=== PATIENT | female | born 1940 | race Caucasian/White ===

== ENCOUNTER 2018-08-14 11:00 | Emergency (ER) | payer OTHER ==
[2018-08-14 11:22] VITALS: BP 153/55; PULSE 89; TEMP 98; BMI 21.6
--- NOTE | 2018-08-14 11:45 | PDOC ---
History of Present Illness - General Chief Complaint: Injury Stated Complaint: FALL Time Seen by Provider: 08/14/18 11:05 History Source: Patient (78 y/o female drove and walked in the ED with a history of loosing her balance while walking in the dark in her apartment, hit the head without loss of consciousness and right sided of the chest few nights ago) Exam Limitations: No Limitations - History of Present Illness Severity: moderate Modifying Factors: improves with: medication, rest Associated Symptoms: reports: denies symptoms, shortness of breath ( mild shortness of breath when attempted to take a deep breath). denies: nausea/ vomiting Past History - Travel Traveled outside of the country in the last 30 days: No Close contact w/someone who was outside of country & ill: No - Past Medical History Allergies/Adverse Reactions: Allergies Allergy/AdvReac Type Severity Reaction Status Date / Time oyster extract Allergy Mild Hives Verified 06/09/13 09:38 Penicillins Allergy Mild Verified 06/09/13 09:38 lisinopril Allergy Cough Unverified 02/04/14 13:58 shellfish derived Allergy Verified 06/09/13 09:39 pioglitazone AdvReac Severe falls Unverified 12/07/16 10:58 WINE Allergy Intermediate Rash Uncoded 06/09/13 09:38 oyster extract Allergy Mild Hives Uncoded 06/09/13 09:38 *RETIRED-04/09/12 lobster Allergy Unknown Uncoded 06/09/13 09:38 Home Medications: Ambulatory Orders Aspirin Coated [Ecotrin -] 81 mg PO DAILY 06/09/13 Cholecalciferol (Vitamin D3) [Vitamin D -] 400 unit PO DAILY tablet 04/21/14 Amlodipine Besylate 5 mg PO 1/2 tab daily 02/12/17 Anemia: No Asthma: No Cancer: Yes (BREAST, OVARIAN) Cardiac Disorders: Yes CVA: No COPD: No CHF: No Dementia: No Diabetes: Yes (15 yrs) GI Disorders: No Disorders: No HTN: Yes Hypercholesterolemia: Yes Liver Disease: No Seizures: No Thyroid Disease: Yes - Surgical History Abdominal Surgery: No Appendectomy: No Cardiac Surgery: No Cholecystectomy: No Lung Surgery: No Neurologic Surgery: No Orthopedic Surgery: No - Suicide/Smoking/Psychosocial Hx Smoking Status: No Smoking History: Never smoked Have you smoked in the past 12 months: No Number of Cigarettes Smoked Daily: 0 Information on smoking cessation initiated: No Hx Alcohol Use: No Drug/Substance Use Hx: No Substance Use Type: None Hx Substance Use Treatment: No Review of Systems - Review of Systems Able to Perform ROS?: Yes Is the patient limited Swedish proficient: Yes Constitutional: Yes: Weakness HEENTM: No: Symptoms Reported, See HPI, Eye Pain, Blurred Vision, Tearing, Recent change in vision, Double Vision, Cataracts, Ear Pain, Ocular Prothesis, Ear Discharge, Nose Pain, Nose Congestion, Tinnitus, Nose Bleeding, Hearing Loss , Throat Pain, Throat Swelling, Mouth Pain, Dental Problems, Difficulty Swallowing, Mouth Swelling, Other Respiratory: Yes: See HPI Cardiac (ROS): No: Symptoms Reported, See HPI, Chest Pain, Edema, Irregular Heart Rate, Lightheadedness, Palpitations, Syncope, Chest Tightness, Other ABD/GI: No: Symptoms Reported, See HPI, Abdominal Distended, Abd. Pain w/ defecation, Blood Streaked Bowels, Constipated, Diarrhea, Difficulty Swallowing , Nausea, Poor Appetite, Poor Fluid Intake, Rectal Bleeding, Vomiting, Indigestion, Abdominal cramping, Tarry Stools, Other Neurological: Yes: Headache (athe site of the back of the head) All Other Systems: Reviewed and Negative *Physical Exam - Vital Signs Last Vital Signs Temp Pulse Resp BP Pulse Ox 98 F 89 18 153/55 L 96 08/14/18 11:00 08/14/18 11:00 08/14/18 11:00 08/14/18 11:00 08/14/18 11:00 - Physical Exam General Appearance: Yes: Nourished, Appropriately Dressed, Thin. No: Apparent Distress HEENT: positive: SEGUNDO, Normal ENT Inspection, Normal Voice Neck: positive: Trachea midline, Supple. negative: Carotid bruit Respiratory/Chest: positive: Lungs Clear (Limited inspiratory efforts due to pain on the right side of the chest) Gastrointestinal/Abdominal: positive: Normal Bowel Sounds, Flat Musculoskeletal: positive: Normal Inspection Extremity: positive: Normal Capillary Refill, Normal Inspection, Normal Range of Motion Neurologic: positive: results engineer II-XII NML intact, Fully Oriented, Normal Mood/Affect Moderate Sedation - Procedure Monitoring Vital Signs: Procedure Monitoring Vital Signs Temperature 98 F 08/14/18 11:00 Pulse Rate 89 08/14/18 11:00 Respiratory Rate 18 08/14/18 11:00 Blood Pressure 153/55 L 08/14/18 11:00 O2 Sat by Pulse Oximetry (%) 96 08/14/18 11:00 *DC/Admit/Observation/Transfer Diagnosis at time of Disposition: Fracture of ribs, three, closed Qualifiers: Encounter type: initial encounter Laterality: right Qualified Code(s): S22.41XA - Multiple fractures of ribs, right side, initial encounter for closed fracture Head trauma Qualifiers: Encounter type: initial encounter Qualified Code(s): S09.90XA - Unspecified injury of head, initial encounter - Discharge Dispostion Disposition: HOME Condition at time of disposition: Stable Decision to Admit order: No - Referrals Referrals: Codey Bravo MD [Primary Care Provider] - - Patient Instructions Printed Discharge Instructions: DI for Rib Fracture, How to Prevent Falls, DI for Closed Head Injury Additional Instructions: Follow up with your doctor, Shelly CARBAJAL in 3-5 days See your echocardiography radiology technologist tomorrow as visit arranged by us Return to ER if any symptoms - Post Discharge Activity
== END 2018-08-14 13:50 | disposition home or self-care (01) ==
LOC: FER 11:00
DX: S22.41XA Multiple fractures of ribs, right side, initial encounter for closed fracture (principal); S09.90XA Unspecified injury of head, initial encounter; W01.10XA Fall on same level from slipping, tripping and stumbling with subsequent striking against unspecified object, initial encounter; Y93.89 Activity, other specified; Y92.009 Unspecified place in unspecified non-institutional (private) residence as the place of occurrence of the external cause; I10 Essential (primary) hypertension; E78.00 Pure hypercholesterolemia, unspecified; E11.9 Type 2 diabetes mellitus without complications; Z85.43 Personal history of malignant neoplasm of ovary; Z85.3 Personal history of malignant neoplasm of breast; Z88.0 Allergy status to penicillin; Z91.013 Allergy to seafood; Z88.8 Allergy status to other drugs, medicaments and biological substances
CPT/HCPCS: 70450-TC; 71046-TC-FY; 71101-TC-RT-FY; 99282-25

== ENCOUNTER 2018-11-24 16:56 | Inpatient (IN) | payer OTHER ==
[2018-11-24] MEDS ORDERED: ACETAMINOPHEN 325 MG TABLET (FP) ONE (17:03)
[2018-11-24] MEDS ORDERED: LORazepam 2 MG/ML SDV VIAL ONE ×2 (17:11→17:35)
--- NOTE | 2018-11-24 17:17 | PDOC ---
Attending Attestation - Resident Resident Name: Juan Sepulveda - ED Attending Attestation I have performed the following: I have examined & evaluated the patient, The case was reviewed & discussed with the resident, I agree w/resident's findings & plan, Exceptions are as noted
[2018-11-24] MEDS ORDERED: ACETAMINOPHEN 500 MG TABLET (FP) PO STA (17:26)
[2018-11-24] MEDS ORDERED: levETIRAcetam 500 MG/5 ML INJECTION VIAL IVPB ONE (17:26)
[2018-11-24 17:29] LABS: BASO % 1.6 % (0-2.0); EOS % 5.4 % (0-4.5); HEMATOCRIT 29.8 % (32.4-45.2); HEMOGLOBIN 9.6 GM/dL (10.7-15.3); LYMPH % 26.9 % (8-40); MCH 23.1 pg (25.7-33.7); MCHC 32.3 g/dl (32.0-36.0); MEAN CELL VOLUME 71.8 fl (80-96); MEAN PLT VOLUME 7.1 fl (7.5-11.1); MONO % 8.2 % (3.8-10.2); NEUT % 57.9 % (42.8-82.8); PLATELET COUNT 235 K/MM3 (134-434); RBC 4.15 M/mm3 (3.60-5.2); RDW 15.8 % (11.6-15.6); WHITE BLOOD COUNT 5.3 K/mm3 (4.0-10.0)
[2018-11-24 17:39] LABS: EPI CELLS 0.1 /HPF (0-5/HPF); PH,URINE 7.5 (5.0-8.0); URINE APPEARANCE CLEAR; URINE BACTERIA 2.5 /hpf (NEGATIVE); URINE BILIRUBIN NEGATIVE (NEGATIVE); URINE CASTS 1 /lpf (0-8); URINE COLOR YELLOW; URINE GLUCOSE (UA) 1+ (NEGATIVE); URINE KETONE NEGATIVE (NEGATIVE); URINE LEUK ESTERASE NEGATIVE (NEGATIVE); URINE NITRITE NEGATIVE (NEGATIVE); URINE PROTEIN 2+ (NEGATIVE); URINE RBC 2 /hpf (0-4); URINE UROBILINOGEN 0.2 mg/dL (0.2-1.0); URINE WBC 0 /hpf (0-5)
[2018-11-24] MEDS ORDERED: RAPID SEQUENCE INTUBATION KIT NR ONE (17:43)
[2018-11-24] MEDS ORDERED: PROPOFOL 1,000,000 MCG/100 ML VIAL ONE (17:50)
[2018-11-24 17:52] LABS: ANION GAP 12 MMOL/L (8-16); BLOOD UREA NITROGEN 13 mg/dL (7-18); CALCIUM 8.4 mg/dL (8.5-10.1); CHLORIDE 91 mmol/L (98-107); CO2 22 mmol/L (21-32); CREATININE 0.8 mg/dL (0.55-1.3); GLUCOSE,RANDOM 200 mg/dL (74-106); POTASSIUM 3.9 mmol/L (3.5-5.1); SODIUM 125 mmol/L (136-145)
[2018-11-24 17:53] LABS: ALBUMIN 3.4 g/dl (3.4-5.0); ALK PHOS 69 U/L (45-117); BILIRUBIN,TOTAL 0.2 mg/dL (0.2-1); SGOT/AST 17 U/L (15-37); SGPT/ALT 21 U/L (13-61); TOT PROT 6.4 g/dl (6.4-8.2)
[2018-11-24] MEDS ORDERED: ETOMIDATE 20 MG/10 ML AMPUL IVPUSH ONE (17:56)
[2018-11-24] MEDS ORDERED: SUCCINYLCHOLINE CHLORIDE 200 MG/10 ML VIAL IVPUSH ONE (17:56)
[2018-11-24 17:58] LABS: INR 0.97 (0.83-1.09); PROTHROMBIN TIME (PATIENT) 11.5 SEC (9.7-13.0)
[2018-11-24] MEDS: PROPOFOL 1,000,000 MCG/100 ML VIAL IVPB SCH ×2 (18:00→22:00)
[2018-11-24] MEDS ORDERED: ACETAMINOPHEN 500 MG TABLET (FP) PO ONE (18:02)
--- NOTE | 2018-11-24 18:11 | PDOC ---
History of Present Illness <Binta Son - Last Filed: 11/24/18 18:41> - History of Present Illness Initial Comments: 11/24/18 18:05 Ms. Jo is a 78 yo female w/ pmh of HTN, HLD, DM, hypothyroidism who presents s /p fall earlier today. Patient reports she "might have" tripped while visiting in [place]. Patient fell and hit wheelchair with head. Currently complaining of pain at head impact site only. The patient denies chest pain, shortness of breath, headache and dizziness. Denies fever, chills, nausea, vomit, diarrhea and constipation. Denies dysuria, frequency, urgency and hematuria. <Juan Sepulveda - Last Filed: 11/24/18 20:40> - General Chief Complaint: Injury Stated Complaint: Injury Time Seen by Provider: 11/24/18 17:17 Past History <Binta Son - Last Filed: 11/24/18 18:41> - Past Medical History Anemia: No Asthma: No Cancer: Yes (BREAST, OVARIAN) Cardiac Disorders: Yes CVA: No COPD: No CHF: No Dementia: No Diabetes: Yes (15 yrs) GI Disorders: No Disorders: No HTN: Yes Hypercholesterolemia: Yes Liver Disease: No Seizures: No Thyroid Disease: Yes - Surgical History Abdominal Surgery: No Appendectomy: No Cardiac Surgery: No Cholecystectomy: No Lung Surgery: No Neurologic Surgery: No Orthopedic Surgery: No - Immunization History Immunization Up to Date: Yes - Suicide/Smoking/Psychosocial Hx Smoking Status: No Smoking History: Never smoked Have you smoked in the past 12 months: No Number of Cigarettes Smoked Daily: 0 Hx Alcohol Use: No Drug/Substance Use Hx: No Substance Use Type: None Hx Substance Use Treatment: No <Juan Sepulveda - Last Filed: 11/24/18 20:40> - Past Medical History Allergies/Adverse Reactions: Allergies Allergy/AdvReac Type Severity Reaction Status Date / Time oyster extract Allergy Mild Hives Verified 11/24/18 17:01 Penicillins Allergy Mild Verified 11/24/18 17:01 lisinopril Allergy Cough Verified 11/24/18 18:24 shellfish derived Allergy Verified 11/24/18 17:01 pioglitazone AdvReac Severe falls Verified 11/24/18 18:24 WINE Allergy Intermediate Rash Uncoded 11/24/18 17:01 oyster extract Allergy Mild Hives Uncoded 11/24/18 17:01 *RETIRED-04/09/12 lobster Allergy Unknown Uncoded 11/24/18 17:01 Home Medications: Ambulatory Orders Aspirin Coated [Ecotrin -] 81 mg PO DAILY 06/09/13 Cholecalciferol (Vitamin D3) [Vitamin D -] 400 unit PO DAILY tablet 04/21/14 Amlodipine Besylate 5 mg PO 1/2 tab daily 02/12/17 Review of Systems - Review of Systems Comments:: 11/24/18 18:10 GENERAL/CONSTITUTIONAL: No fever or chills. No weakness. HEAD, EYES, EARS, NOSE AND THROAT: +Pain to head as described. No change in vision. No ear pain or discharge. No sore throat. CARDIOVASCULAR: No chest pain or shortness of breath RESPIRATORY: No cough, wheezing, or hemoptysis. GASTROINTESTINAL: No nausea, vomiting, diarrhea or constipation. GENITOURINARY: No dysuria, frequency, or change in urination. MUSCULOSKELETAL: No joint or muscle swelling or pain. No neck or back pain. SKIN: No rash NEUROLOGIC: No headache, vertigo, loss of consciousness, or change in strength/ sensation. ENDOCRINE: No increased thirst. No abnormal weight change HEMATOLOGIC/LYMPHATIC: No anemia, easy bleeding, or history of blood clots. ALLERGIC/IMMUNOLOGIC: No hives or skin allergy. <Juan Sepulveda - Last Filed: 11/24/18 20:40> *Physical Exam - Vital Signs Last Vital Signs Temp Pulse Resp BP Pulse Ox 98.8 F 81 16 173/146 H 100 11/24/18 16:59 11/24/18 16:59 11/24/18 18:37 11/24/18 16:59 11/24/18 18:37 <Binta Son - Last Filed: 11/24/18 18:41> - Vital Signs Last Vital Signs Temp Pulse Resp BP Pulse Ox 98.8 F 81 18 173/146 H 100 11/24/18 16:59 11/24/18 16:59 11/24/18 16:59 11/24/18 16:59 11/24/18 16:59 - Physical Exam Comments: 11/24/18 18:10 GENERAL: Awake, alert, and fully oriented, in no acute distress HEAD: +Approx. 2 cm laceration actively pulsing blood at L forehead hairline. Normocephalic EYES: PERRLA, EOMI, sclera anicteric, conjunctiva clear ENT: Auricles normal inspection, hearing grossly normal, nares patent, oropharynx clear without exudates. Moist mucosa NECK: Normal ROM, supple, no lymphadenopathy, JVD, or masses LUNGS: No distress, speaks full sentences, clear to auscultation bilaterally HEART: Regular rate and rhythm, normal S1 and S2, no murmurs, rubs or gallops, peripheral pulses normal and equal bilaterally. ABDOMEN: Soft, nontender, normoactive bowel sounds. No guarding, no rebound. No masses EXTREMITIES: Normal inspection, Normal range of motion, no edema. No clubbing or cyanosis. NEUROLOGICAL: Cranial nerves II through XII grossly intact. Normal speech, normal gait, no focal sensorimotor deficits SKIN: Warm, Dry, normal turgor, no rashes or lesions noted. 11/24/18 18:48 <Juan Sepulveda - Last Filed: 11/24/18 20:40> Procedures - Intubation Time of Intubation: 17:45 Intubation Method: orotracheal Blade used: Mac Tube Size (Fr): 7.5 Medications: Etomidate, Rocuronium Tube position @ lip (cm): 22 Tube position confirmed by: Direct visualization, CO2 detector, Breath sounds Breath Sounds after Intubation: equal Intubation Complications: no complications <Binta Son - Last Filed: 11/24/18 18:41> ED Treatment Course - LABORATORY CBC & Chemistry Diagram: 11/24/18 17:18 11/24/18 17:18 - ADDITIONAL ORDERS Additional order review: Laboratory Results 11/24/18 11/24/18 11/24/18 17:18 17:18 17:18 PT with INR 11.50 INR 0.97 Sodium 125 L Potassium 3.9 Chloride 91 L Carbon Dioxide 22 Anion Gap 12 BUN 13 Creatinine 0.8 Creat Clearance w eGFR 69.37 POC Glucometer Random Glucose 200 H Calcium 8.4 L Total Bilirubin 0.2 AST 17 ALT 21 Alkaline Phosphatase 69 Creatine Kinase 199 H Creatine Kinase Index 1.6 CK-MB (CK-2) 3.3 Troponin I < 0.02 Total Protein 6.4 Albumin 3.4 Urine Color Yellow Urine Appearance Clear Urine pH 7.5 Ur Specific Thrall 1.009 L Urine Protein 2+ H Urine Glucose (UA) 1+ H Urine Ketones Negative Urine Blood Trace Urine Nitrite Negative Urine Bilirubin Negative Urine Urobilinogen 0.2 Ur Leukocyte Esterase Negative Urine WBC (Auto) 0 Urine RBC (Auto) 2 Urine Casts (Auto) 1 U Epithel Cells (Auto) 0.1 Urine Bacteria (Auto) 2.5 11/24/18 17:13 PT with INR INR Sodium Potassium Chloride Carbon Dioxide Anion Gap BUN Creatinine Creat Clearance w eGFR POC Glucometer 192 Random Glucose Calcium Total Bilirubin AST ALT Alkaline Phosphatase Creatine Kinase Creatine Kinase Index CK-MB (CK-2) Troponin I Total Protein Albumin Urine Color Urine Appearance Urine pH Ur Specific Thrall Urine Protein Urine Glucose (UA) Urine Ketones Urine Blood Urine Nitrite Urine Bilirubin Urine Urobilinogen Ur Leukocyte Esterase Urine WBC (Auto) Urine RBC (Auto) Urine Casts (Auto) U Epithel Cells (Auto) Urine Bacteria (Auto) 11/24/18 11/24/18 17:18 17:13 RBC 4.15 MCV 71.8 L MCHC 32.3 RDW 15.8 H MPV 7.1 L Neutrophils % 57.9 Lymphocytes % 26.9 Monocytes % 8.2 Eosinophils % 5.4 H Basophils % 1.6 POC Glucometer 192 - Medications Given in the ED: ED Medications Discontinued Medications Generic Name Dose Route Start Last Admin Trade Name Darshanq PRN Reason Stop Dose Admin Acetaminophen 975 mg 11/24/18 17:26 11/24/18 17:20 Tylenol - PO 11/24/18 17:27 975 mg ONCE STA Administration Acetaminophen 975 mg 11/24/18 18:02 11/24/18 18:25 Tylenol - PO 11/24/18 18:03 Not Given ONCE ONE Diphtheria/Tetanus/Acell Pertussis 0.5 ml 11/24/18 18:12 11/24/18 18:34 Boostrix - IM 11/24/18 18:13 0.5 ml .ONCE ONE Administration Etomidate 20 mg 11/24/18 17:56 11/24/18 17:44 Amidate - IVPUSH 11/24/18 17:57 20 mg ONCE ONE Administration Levetiracetam 1,000 mg 11/24/18 17:26 11/24/18 18:36 Keppra Injection - IVPB 11/24/18 17:27 Not Given ONCE ONE Lorazepam 2 mg 11/24/18 17:26 11/24/18 17:26 Ativan Injection - IVPUSH 11/24/18 17:27 2 mg ONCE ONE Administration Lorazepam 2 mg 11/24/18 17:56 11/24/18 18:25 Ativan Injection - IVPUSH 11/24/18 17:57 Not Given ONCE ONE Lorazepam 2 mg 11/24/18 18:33 11/24/18 18:36 Ativan Injection - IVPUSH 11/24/18 18:34 2 mg ONCE ONE Administration Succinylcholine Chloride 100 mg 11/24/18 17:56 11/24/18 17:44 Quelicin - IVPUSH 11/24/18 17:57 100 mg ONCE ONE Administration <Binta Son - Last Filed: 11/24/18 18:41> - LABORATORY CBC & Chemistry Diagram: 11/24/18 17:18 11/24/18 17:18 - ADDITIONAL ORDERS Additional order review: Laboratory Results 11/24/18 11/24/18 11/24/18 17:18 17:18 17:18 PT with INR 11.50 INR 0.97 Sodium 125 L Potassium 3.9 Chloride 91 L Carbon Dioxide 22 Anion Gap 12 BUN 13 Creatinine 0.8 Creat Clearance w eGFR 69.37 POC Glucometer Random Glucose 200 H Calcium 8.4 L Total Bilirubin 0.2 AST 17 ALT 21 Alkaline Phosphatase 69 Creatine Kinase 199 H Troponin I < 0.02 Total Protein 6.4 Albumin 3.4 Urine Color Yellow Urine Appearance Clear Urine pH 7.5 Ur Specific Thrall 1.009 L Urine Protein 2+ H Urine Glucose (UA) 1+ H Urine Ketones Negative Urine Blood Trace Urine Nitrite Negative Urine Bilirubin Negative Urine Urobilinogen 0.2 Ur Leukocyte Esterase Negative Urine WBC (Auto) 0 Urine RBC (Auto) 2 Urine Casts (Auto) 1 U Epithel Cells (Auto) 0.1 Urine Bacteria (Auto) 2.5 11/24/18 17:13 PT with INR INR Sodium Potassium Chloride Carbon Dioxide Anion Gap BUN Creatinine Creat Clearance w eGFR POC Glucometer 192 Random Glucose Calcium Total Bilirubin AST ALT Alkaline Phosphatase Creatine Kinase Troponin I Total Protein Albumin Urine Color Urine Appearance Urine pH Ur Specific Thrall Urine Protein Urine Glucose (UA) Urine Ketones Urine Blood Urine Nitrite Urine Bilirubin Urine Urobilinogen Ur Leukocyte Esterase Urine WBC (Auto) Urine RBC (Auto) Urine Casts (Auto) U Epithel Cells (Auto) Urine Bacteria (Auto) 11/24/18 11/24/18 17:18 17:13 RBC 4.15 MCV 71.8 L MCHC 32.3 RDW 15.8 H MPV 7.1 L Neutrophils % 57.9 Lymphocytes % 26.9 Monocytes % 8.2 Eosinophils % 5.4 H Basophils % 1.6 POC Glucometer 192 <Juan Sepulveda - Last Filed: 11/24/18 20:40> Medical Decision Making - Medical Decision Making 11/24/18 18:11 Ms. Jo is a 78 yo female w/ pmh as described who presents s/p fall. During secondary exam for blood control of lac, patient noted to start seizing w/ eye deviation to L and rhythmic mouth movements. Patient given 2mg ativan. Patient taken for head / c-spine immediately. 11/24/18 18:48 Patient trauma workup as below significant for anemia as well as hyponatremia. Head / C-spine CT's negative for acute process. Patient noted to have additional self limited seizure in CT scanner. Additional 2mg ativan given for sedation. Patient intubated prophylactically and given propofol for sedation. NS added for sodium repletion. Tetanus booster given. 11/24/18 19:06 Patient discussed with Neurology who recommended close monitoring for time being with addition of keppra 500 BID if third seizure. Breathing trial ok later tonight if patient protecting airway and staff comfortable with progress. Patient will be admitted to ICU. 11/24/18 19:41 Patient noted to have disconnected self from vent. Patient placed on NC at 3L for breathing trial and noted to desaturate to 93%. Patient sedation increased with push of propofol and patient reconnected to vent. Patient failed breathing trial. Patient admitted to ICU for further care. 11/24/18 20:39 Patient required additional 5mg versed for additional sedation. Laboratory Results - last 24 hr 11/24/18 11/24/18 11/24/18 17:13 17:18 17:18 WBC 5.3 RBC 4.15 Hgb 9.6 L Hct 29.8 L MCV 71.8 L MCH 23.1 L MCHC 32.3 RDW 15.8 H Plt Count 235 MPV 7.1 L Absolute Neuts (auto) 3.1 Neutrophils % 57.9 Lymphocytes % 26.9 Monocytes % 8.2 Eosinophils % 5.4 H Basophils % 1.6 Nucleated RBC % 0 PT with INR 11.50 INR 0.97 Sodium Potassium Chloride Carbon Dioxide Anion Gap BUN Creatinine Creat Clearance w eGFR POC Glucometer 192 Random Glucose Calcium Total Bilirubin AST ALT Alkaline Phosphatase Creatine Kinase Creatine Kinase Index CK-MB (CK-2) Troponin I Total Protein Albumin Urine Color Urine Appearance Urine pH Ur Specific Thrall Urine Protein Urine Glucose (UA) Urine Ketones Urine Blood Urine Nitrite Urine Bilirubin Urine Urobilinogen Ur Leukocyte Esterase Urine WBC (Auto) Urine RBC (Auto) Urine Casts (Auto) U Epithel Cells (Auto) Urine Bacteria (Auto) 11/24/18 11/24/18 17:18 17:18 WBC RBC Hgb Hct MCV MCH MCHC RDW Plt Count MPV Absolute Neuts (auto) Neutrophils % Lymphocytes % Monocytes % Eosinophils % Basophils % Nucleated RBC % PT with INR INR Sodium 125 L Potassium 3.9 Chloride 91 L Carbon Dioxide 22 Anion Gap 12 BUN 13 Creatinine 0.8 Creat Clearance w eGFR 69.37 POC Glucometer Random Glucose 200 H Calcium 8.4 L Total Bilirubin 0.2 AST 17 ALT 21 Alkaline Phosphatase 69 Creatine Kinase 199 H Creatine Kinase Index 1.6 CK-MB (CK-2) 3.3 Troponin I < 0.02 Total Protein 6.4 Albumin 3.4 Urine Color Yellow Urine Appearance Clear Urine pH 7.5 Ur Specific Thrall 1.009 L Urine Protein 2+ H Urine Glucose (UA) 1+ H Urine Ketones Negative Urine Blood Trace Urine Nitrite Negative Urine Bilirubin Negative Urine Urobilinogen 0.2 Ur Leukocyte Esterase Negative Urine WBC (Auto) 0 Urine RBC (Auto) 2 Urine Casts (Auto) 1 U Epithel Cells (Auto) 0.1 Urine Bacteria (Auto) 2.5 <Juan Sepulveda - Last Filed: 11/24/18 20:40> *DC/Admit/Observation/Transfer <Binta Son - Last Filed: 11/24/18 18:41> - Discharge Dispostion Decision to Admit order: Yes <Juan Sepulveda - Last Filed: 11/24/18 20:40> Diagnosis at time of Disposition: Seizure Head trauma Qualifiers: Encounter type: initial encounter Qualified Code(s): S09.90XA - Unspecified injury of head, initial encounter
[2018-11-24] MEDS ORDERED: DIPHTH,PERTUSS(ACELL),TET 0.5 ML DISP.SYRIN IM ONE ×2 (18:12→18:27)
[2018-11-24] MEDS ORDERED: SODIUM CHLORIDE 1,000 ML IV STA (18:22)
[2018-11-24] MEDS ORDERED: ASPIRIN 81 MG CHEWABLE TABLETS ONE (18:39)
[2018-11-24] MEDS ORDERED: LOSARTAN POTASSIUM 50 MG TABLET (FP) ONE (18:39)
[2018-11-24] MEDS ORDERED: PROPOFOL 200 MG/20 ML VIAL IVPUSH ONE ×2 (19:05→19:30)
--- NOTE | 2018-11-24 20:14 | PN ---
Teaching Attending Note Name of Resident: Josephine Lawrence ATTENDING PHYSICIAN STATEMENT I saw and evaluated the patient. I reviewed the resident's note and discussed the case with the resident. I agree with the resident's findings and plan as documented. SUBJECTIVE: Seen and examined; please see resident note for further historical information. Briefly, she presents with a fall and seizure. She had gone [place] when she sustained what we are told is a mechanical fall and ended up hitting her head. She was noted to seize when having sutures put in and she improved after ativan. She seized in CT scan again. We are told she had R-sided gaze deviation but no tonic-clonic. She was never post ictal per the ER. She was intubated in the ER for airway protection with etomodate and succinylcholine. ER spoke to neurology; recommendations noted. ER events noted. She will be brought to the ICU for further treatment and monitoring. 10 sys ROS couldn't be reliably obtained PMH (HTN, HLD, DM, Hypothyroidism, falls with rib fx), PSH, FH, SH reviewed Home Medications Medication Instructions Recorded Aspirin Coated [Ecotrin -] 81 mg PO DAILY 06/09/13 Cholecalciferol (Vitamin D3) 400 unit PO DAILY tablet 04/21/14 [Vitamin D -] Amlodipine Besylate 5 mg PO 1/2 tab daily 02/12/17 OBJECTIVE: VS, labs, imaging reviewed NAD, RASS 3 sedated on vent, NC AT EOMI PERRLA RRR s1/2 no mgr Lungs with vent associated breath sounds, w/ sym exp Withdrawals to pain, reflexes +2 throughout Not agitated, doesn't appear to be in pain Imaging reviewed; final reports pending ASSESSMENT AND PLAN: Patient presents with fall with facial trauma found to seize x2 in the ER; neurology has been consulted. She was intubated for airway protection and will be brought to the ICU. 1) Fall with facial trauma -Sutured in the ER; wound care instrtuctions to be given on DC -Couldn't confirm with patient but I am told the fall wasn't syncopal. -Followup wound exam 2) Seizures -Keppra per neuro instruction; appreciate recs. PRN abortive tx. Monitor if she seizes again -Neuro checks and seizure precautions -Further diagnostics per consulting service. 3) S/P Intubation for airway protection -Spontaneous breathing trial in AM per pulmonary medicine; on propofol for sedation. RASS 3. NPO and IVF (low rate given low BMI, unknown CV status) 4) Hx DM -Reconcile home med list and SSI while inpatient 5) Hx HLD -Resume home meds when clinically appropriate 6) Hx HTN -Resume home meds when clinically appropriate 7) Hx Hypothyroidism -Reconcile and continue home medication 8) Microcytic Anemia -Followup iron studies 9) Hyponatremia -Chronic; will check urine and serum osm and urine Na FENA -LR@100 -PRN replete -NPO -Bedrest Full Code
--- NOTE | 2018-11-24 20:30 | CONSULT ---
Consultation: REQUESTING PROVIDER: CONSULT REQUEST: We have been asked to medically evaluate this patient for seizure/airway protection. HISTORY OF PRESENT ILLNESS: This is a 78 year old female with who [facility] . She sustained a laceration to her head which prompted her ER visit. During laceration repair in ED, she had a witnessed seizure by the ER resident. Eye deviated to the left with mouth twitching. She was given ativan and taken to CT, in CT she had another seizure. Patient was then intubated for airway protection. She was given propofol for sedation. During initial evaluation, patient was awake, staring off, not making eye contact, with both arms in the air, moving in bed. She then disconnected the ET tube from ventilator. During that time patient was suctioned for extubation, although she started to desaturate and remained aloof and confused. Patient kept sedated and intubated. PMH: as per EMR HTN, hypothyroid, DMII, hx of breast and ovarian CA REVIEW OF SYSTEMS: N/A PHYSICAL EXAMINATION Vital Signs - 24 hr 11/24/18 11/24/18 11/24/18 16:59 17:15 17:50 Temperature 98.8 F Pulse Rate 81 71 Pulse Rate [ 76 Apical] Respiratory 18 16 16 Rate Blood Pressure 173/146 H Blood Pressure 142/76 [Right Arm] O2 Sat by Pulse 100 100 100 Oximetry (%) 11/24/18 11/24/18 18:10 18:37 Temperature Pulse Rate Pulse Rate [ 68 Apical] Respiratory 16 16 Rate Blood Pressure Blood Pressure 139/82 [Right Arm] O2 Sat by Pulse 100 100 Oximetry (%) GENERAL: initial eyes opened, not making eye contact, flaring arms and trying to get out of bed, looked very confused; she then was given more sedation after ET reconnected. sating 90s on 50% FiO2 HEAD: scalp frontal laceration with sutures, with dried blood, no active bleeding, swelling EYES: pupils normal; reactive; EOMS, not following THROAT: ET tube in place multiple secretions LUNGS: anterior scattered rhonchi; posterior no crackles or wheeze HEART: Regular rate and rhythm, normal S1 and S2 without murmur, rub or gallop. ABDOMEN: Soft, nontender, not distended, normoactive bowel sounds, no guarding, no rebound, no masses. No hepatomegaly or splenomegaly. UPPER EXTREMITIES: 2+ pulses, warm, well-perfused. No cyanosis. No clubbing. Cap refill <2 seconds. No peripheral edema. LOWER EXTREMITIES: 2+ pulses, warm, well-perfused. No calf tenderness. No peripheral edema. NEUROLOGICAL: sedated SKIN: Warm, dry, normal turgor, no rashes or lesions noted. Laboratory Results - last 24 hr 11/24/18 11/24/18 11/24/18 17:13 17:18 17:18 WBC 5.3 RBC 4.15 Hgb 9.6 L Hct 29.8 L MCV 71.8 L MCH 23.1 L MCHC 32.3 RDW 15.8 H Plt Count 235 MPV 7.1 L Absolute Neuts (auto) 3.1 Neutrophils % 57.9 Lymphocytes % 26.9 Monocytes % 8.2 Eosinophils % 5.4 H Basophils % 1.6 Nucleated RBC % 0 PT with INR 11.50 INR 0.97 Sodium Potassium Chloride Carbon Dioxide Anion Gap BUN Creatinine Creat Clearance w eGFR POC Glucometer 192 Random Glucose Calcium Total Bilirubin AST ALT Alkaline Phosphatase Creatine Kinase Creatine Kinase Index CK-MB (CK-2) Troponin I Total Protein Albumin Urine Color Urine Appearance Urine pH Ur Specific [place] Urine Protein Urine Glucose (UA) Urine Ketones Urine Blood Urine Nitrite Urine Bilirubin Urine Urobilinogen Ur Leukocyte Esterase Urine WBC (Auto) Urine RBC (Auto) Urine Casts (Auto) U Epithel Cells (Auto) Urine Bacteria (Auto) Blood Type Antibody Screen 11/24/18 11/24/18 11/24/18 17:18 17:18 17:18 WBC RBC Hgb Hct MCV MCH MCHC RDW Plt Count MPV Absolute Neuts (auto) Neutrophils % Lymphocytes % Monocytes % Eosinophils % Basophils % Nucleated RBC % PT with INR INR Sodium 125 L Potassium 3.9 Chloride 91 L Carbon Dioxide 22 Anion Gap 12 BUN 13 Creatinine 0.8 Creat Clearance w eGFR 69.37 POC Glucometer Random Glucose 200 H Calcium 8.4 L Total Bilirubin 0.2 AST 17 ALT 21 Alkaline Phosphatase 69 Creatine Kinase 199 H Creatine Kinase Index 1.6 CK-MB (CK-2) 3.3 Troponin I < 0.02 Total Protein 6.4 Albumin 3.4 Urine Color Yellow Urine Appearance Clear Urine pH 7.5 Ur Specific [place] 1.009 L Urine Protein 2+ H Urine Glucose (UA) 1+ H Urine Ketones Negative Urine Blood Trace Urine Nitrite Negative Urine Bilirubin Negative Urine Urobilinogen 0.2 Ur Leukocyte Esterase Negative Urine WBC (Auto) 0 Urine RBC (Auto) 2 Urine Casts (Auto) 1 U Epithel Cells (Auto) 0.1 Urine Bacteria (Auto) 2.5 Blood Type O POSITIVE Antibody Screen Negative Active Medications Generic Name Dose Route Start Last Admin Trade Name Anette PRN Reason Stop Dose Admin Chlorhexidine Gluconate 1 applic 11/24/18 22:00 Hibiclens For Decolonization - TP HS SRINATH Propofol 1,000,000 mcg in 100 mls @ 1.361 mls/hr 11/24/18 18:00 11/24/18 19: 13 Diprivan - IVPB 8 mcg/kg/min TITR SRINATH 2.177 mls/hr Titration Protocol 5 MCG/KG/MIN Insulin Aspart 1 vial 11/24/18 20:15 Novolog Vial Sliding Scale - SQ Q4H SRINATH Protocol Mupirocin 1 applic 11/24/18 22:00 Bactroban Ointment (For Decolonization) - NS 11/29/18 21:59 BID SRINATH Pantoprazole Sodium 20 mg 11/25/18 10:00 Protonix Iv IVPUSH DAILY [facility] ASSESSMENT/PLAN: This is a 78 year old female who presents after fall with head laceration, witnessed seizure in ER with hyponatremia. 1. Seizure 2. Fall with head laceration 3. Hyponatremia 4. DMII with hyperglycemia 5. hx hypothyroid 6. hx HTN meds unknown 7. microcytic anemia 7. Hx breast and ovarian ca treatment unknown 1. Witnessed seizure possibly secondary to head trauma vs hyponatremia/ metabolic derangements ; s/p ativan; keppra not given as per neurology recs. Will load if has another seizure. Intubated and seated, failure to extubate due to desaturation and confusion. Head CT. EEG. 2. Fall: CT head/spine/xrays pending. L forehead laceration sutured. check CK level. 3. Hyponatremia. Assess volume status. Given 1L NS in ER. BMP q2-3hrs. Adjust IVF accordingly. corrected NA for glucose 126.6. Will order serum osmo, urine studies , urine na, tsh, am cortisol. 4. DMII, start insulin SS, [id number]. hemoglobin A1C. 5. Hx hypothyroid, check tsh, unknown if patient taking thyroid medication. 6. hypertensive in ER, will cont to monitor, patient now started on propofol. 7. microcytic anemia; iron studies, stool for occult blood, b12, folate VTE ppl : [facility] GI ppl; protonix if intubated >48hrs Full Code Dispo: We will continue to follow the patient. Thank you for this consultative opportunity. Visit type - Emergency Visit Emergency Visit: Yes ED Registration Date: 11/24/18 Care time: The patient presented to the Emergency Department on the above date and was hospitalized for further evaluation of their emergent condition. - New Patient This patient is new to me today: Yes Date on this admission: 11/24/18 - Critical Care Critical Care patient: Yes Total Critical Care Time (in minutes): 35 Critical Care Statement: The care of this patient involved high complexity decision making to prevent further life threatening deterioration of the patient 's condition and/or to evaluate & treat vital organ system(s) failure or risk of failure.
[2018-11-24] MEDS ORDERED: MIDAZOLAM HCL 2 MG/2 ML SINGLE DOSE VIAL ONE (20:33)
--- NOTE | 2018-11-24 20:33 | HP ---
CHIEF COMPLAINT: head injury, seizure PCP: Dr. Bravo HISTORY OF PRESENT ILLNESS: 78 y/o F with PMH HTN, HLD, DM, hypothyroid, hx 3 R sided rib fx 2018 s/p fall, hx breast and ovarian CA, who presents to the ED s/p mechanical fall this afternoon. All hx taken from chart and from ED providers, as pt intubated and sedated upon my examination. As per staff, this afternoon, the pt suffered a mechanical fall, tripping when visiting her in a NH. She subsequently suffered a 2cm laceration to her L forehead. Pt was brought to the ED for further evaluation. She did not have LOC, and was conversing with staff upon arrival. While in the ED, while her head laceration was being sutured, she had a two- minute seizure where she had R eye gaze deviation. Did not have tonic-clonic movements or post-ictal confusion. She later had another seizure of the same type when receiving a CTH lasting for 1 minute. During both seizure episodes, pt was given ativan 2mg IVP (x2 total). She was intubated and sedated for "airway protection" as per ED staff. At one point, she attempted to disconnect herself from the vent, but desat to low 90's so it was reconnected. ROS unable to obtain d/t pt current sedated status. vent settings: on a/c. tv 450/rate 16/%02 50/ peep5 note: keppra 1000mg IVPB was NOT given in ED. d/w nursing and ED attending ER course was notable for: (1) CTH (-), C-spine (-) (2) PO tylenol (3) tdap (4) suturing of L head laceration (5) intubation, vented, sedated. on propofol Recent Travel: unable to obtain see above PAST MEDICAL HISTORY: as above PAST SURGICAL HISTORY: unable to obtain see above (vented, sedated) Social History: as above Smoking: Alcohol: Drugs: Family History: as above Allergies oyster extract Allergy (Mild, Verified 11/24/18 17:01) Hives Penicillins Allergy (Mild, Verified 11/24/18 17:01) DON'T KNOW REACTION lisinopril Allergy (Verified 11/24/18 18:24) Cough shellfish derived Allergy (Verified 11/24/18 17:01) pioglitazone Adverse Reaction (Severe, Verified 11/24/18 18:24) falls WINE Allergy (Intermediate, Uncoded 11/24/18 17:01) Rash oyster extract *RETIRED-04/09/12 Allergy (Mild, Uncoded 11/24/18 17:01) Hives lobster Allergy (Unknown, Uncoded 11/24/18 17:01) HOME MEDICATIONS: Home Medications Medication Instructions Recorded Aspirin Coated [Ecotrin -] 81 mg PO DAILY 06/09/13 Cholecalciferol (Vitamin D3) 400 unit PO DAILY tablet 04/21/14 [Vitamin D -] Amlodipine Besylate 5 mg PO 1/2 tab daily 02/12/17 meds need to be verified with pharmacy and with pt /family pharmacy is closed currently. REVIEW OF SYSTEMS CONSTITUTIONAL: Absent: fever, chills, diaphoresis, generalized weakness, malaise, loss of appetite, weight change HEENT: Absent: rhinorrhea, nasal congestion, throat pain, throat swelling, difficulty swallowing, mouth swelling, ear pain, eye pain, visual changes CARDIOVASCULAR: Absent: chest pain, syncope, palpitations, irregular heart rate, lightheadedness , peripheral edema RESPIRATORY: Absent: cough, shortness of breath, dyspnea with exertion, orthopnea, wheezing, stridor, hemoptysis GASTROINTESTINAL: Absent: abdominal pain, abdominal distension, nausea, vomiting, diarrhea, constipation, melena, hematochezia GENITOURINARY: Absent: dysuria, frequency, urgency, hesitancy, hematuria, flank pain, genital pain MUSCULOSKELETAL: Absent: myalgia, arthralgia, joint swelling, back pain, neck pain SKIN: Absent: rash, itching, pallor HEMATOLOGIC/IMMUNOLOGIC: Absent: easy bleeding, easy bruising, lymphadenopathy, frequent infections ENDOCRINE: Absent: unexplained weight gain, unexplained weight loss, heat intolerance, cold intolerance NEUROLOGIC: +seizure Absent: headache, focal weakness or paresthesias, dizziness, unsteady gait, seizure, mental status changes, bladder or bowel incontinence PSYCHIATRIC: Absent: anxiety, depression, suicidal or homicidal ideation, hallucinations. PHYSICAL EXAMINATION Vital Signs - 24 hr 11/24/18 16:59 Temperature 98.8 F Pulse Rate 81 Pulse Rate [ Apical] Respiratory 18 Rate Blood Pressure 173/146 H Blood Pressure [Right Arm] O2 Sat by Pulse 100 Oximetry (%) 11/24/18 18:10 Temperature Pulse Rate Pulse Rate [ 68 Apical] Respiratory 16 Rate Blood Pressure Blood Pressure 139/82 [Right Arm] O2 Sat by Pulse 100 Oximetry (%) GENERAL: intubated, sedated. on vent. Awake, alert, and fully oriented, in no acute distress. HEAD: + L forehead laceration. approx 2cm. without active bleed. +sutures EYES: Pupils equal, round and reactive to light EARS, NOSE, THROAT: Ears normal, nares patent, oropharynx clear without exudates. Moist mucous membranes. NECK: Normal range of motion, supple LUNGS: Breath sounds equal, clear to auscultation bilaterally. No wheezes, and no crackles. No accessory muscle use. HEART: Regular rate and rhythm, normal S1 and S2 without murmur, rub or gallop. ABDOMEN: Soft, nontender, not distended, normoactive bowel sounds, no guarding UPPER EXTREMITIES: +swollen R wrist. without bruising. LOWER EXTREMITIES: 2+ dp pulses, warm, well-perfused. No calf tenderness. No peripheral edema. NEUROLOGICAL: intubated, sedated. Laboratory Results 11/24/18 11/24/18 11/24/18 17:18 17:18 17:18 WBC 5.3 Hgb 9.6 L Hct 29.8 L MCV 71.8 L Plt Count 235 Sodium 125 L Potassium 3.9 Chloride 91 L Carbon Dioxide 22 BUN 13 Creatinine 0.8 Random Glucose 200 H Ur Specific [place] 1.009 L Urine Protein 2+ H Urine Glucose (UA) 1+ H CTH: (-) for acute changes. ventriculomegaly, small vessel periventricular ischemic changes, thin corpus callosum, no fx or bleed. CXR: without acute changes. official read pending EKG: RBBB, qtc 472ms R hand, wrist XR: result pending ASSESSMENT/PLAN: 78 y/o F with PMH HTN, HLD, DM, hypothyroid, hx 3 R sided rib fx 2019 s/p fall, who presents to the ED s/p mechanical fall this afternoon. #Neuro new onset sz s/p mechanical fall -intubated, sedated on propofol gtt. as per ED to protect airway 2/2 seizures -weaning trials as permitted -s/p ativan 2mg IVP x 2 in ED for two episodes -ED spoke to neuro. Will need to start Keppra 500mg IVPB BID if seizes again -f/u eeg -elevate HOB. prevent aspiration. sz precautions -trend CPK. will start on IV LR 75 cc/hr #Renal Chronic hyponatremia -pt has had over past few years high 120's, low 130's -no previous w/u in chart -should not correct quickly, claudine since chronic. -f/u urine studies, lytes, osm, tsh, cortisol -f/u BMP q2-3 hrs #Heme Microcytic anemia -f/u iron studies, FOBT, b12, folate #MSK s/p mechanical fall -f/u R hand wrist XR for any fx #Endocrine hx hypothyroid -f/u TSH #HTN -initially uncontrolled. now hypotensive 2/2 propofol -continue to follow. hold anti-htn for now. c/w ivf #DM -ISS, BGM -f/u a1c #F/E/N IV LR 75 cc/hr continue to follow lytes NPO #PPX SCD's #Dispo accepted to ICU Visit type - Emergency Visit Emergency Visit: Yes ED Registration Date: 11/24/18 Care time: The patient presented to the Emergency Department on the above date and was hospitalized for further evaluation of their emergent condition. - New Patient This patient is new to me today: Yes Date on this admission: 11/25/18 - Critical Care Critical Care patient: Yes Total Critical Care Time (in minutes): 44 Critical Care Statement: The care of this patient involved high complexity decision making to prevent further life threatening deterioration of the patient 's condition and/or to evaluate & treat vital organ system(s) failure or risk of failure.
[2018-11-24] MEDS ORDERED: MIDAZOLAM HCL 5 MG/1 ML Single Dose Vial IVPUSH ONE (20:39)
[2018-11-24] MEDS ORDERED: LACTATED RINGERS SOLUTION 1,000 ML/1,000 ML INFUS.BAG IV SCH (21:30)
[2018-11-24] MEDS: INSULIN SLIDING SCALE (NOVOLOG) 1 VIAL SQ SCH (22:00)
[2018-11-24] MEDS: LACTATED RINGERS SOLUTION 1,000 ML/1,000 ML INFUS.BAG IV SCH (22:02)
[2018-11-24] MEDS: CHLORHEXIDINE GLUCONATE 4% CLEANSER FOR DECOLONIZATION TP SCH (22:03)
[2018-11-24] MEDS: MUPIROCIN 2% TOPICAL OINTMENT FOR DECOLONIZATION NS SCH (22:03)
[2018-11-24 22:41] LABS: ANION GAP 11 MMOL/L (8-16); BLOOD UREA NITROGEN 13 mg/dL (7-18); CALCIUM 7.7 mg/dL (8.5-10.1); CHLORIDE 97 mmol/L (98-107); CHOLESTEROL 135 mg/dL (50-200); CO2 22 mmol/L (21-32); CREATININE 0.7 mg/dL (0.55-1.3); GLUCOSE,RANDOM 190 mg/dL (74-106); HDL CHOLESTEROL 53 mg/dL (40-60); POTASSIUM 4.3 mmol/L (3.5-5.1); SODIUM 130 mmol/L (136-145); TRIGLYCERIDES 177 mg/dL (0-150)
[2018-11-24 22:46] LABS: URINE APPEARANCE CLEAR; URINE BILIRUBIN NEGATIVE (NEGATIVE); URINE COLOR YELLOW; URINE GLUCOSE (UA) 1+ (NEGATIVE); URINE KETONE NEGATIVE (NEGATIVE); URINE LEUK ESTERASE NEGATIVE (NEGATIVE); URINE NITRITE NEGATIVE (NEGATIVE); URINE PROTEIN NEGATIVE (NEGATIVE); URINE UROBILINOGEN 0.2 mg/dL (0.2-1.0)
[2018-11-24 23:00] LABS: OSMOLALITY,SERUM 279 mosm/kg (278-305)
[2018-11-25] MEDS: INSULIN SLIDING SCALE (NOVOLOG) 1 VIAL SQ SCH ×5 (00:50→16:38)
--- NOTE | 2018-11-25 02:10 | PDOC ---
Documentation entered by Diamante Olivia SCRIBE, acting as scribe for Heavenly Howell MD. Heavenly Howell MD: This documentation has been prepared by the Ne shaw Nirvannie, SCRIBE, under my direction and personally reviewed by me in its entirety. I confirm that the documentation accurately reflects all work, treatment, procedures, and medical decision making performed by me. Attending Attestation - Resident Resident Name: TomasjasongayJuan - ED Attending Attestation I have performed the following: I have examined & evaluated the patient, The case was reviewed & discussed with the resident, I agree w/resident's findings & plan - HPI HPI: 11/24/18 17:55 The patient is a 78 year old female, with a significant past medical history of hypertension, diabetes, anemia, breast cancer, ovarian cancer, and recurrent vertigo, who presents to the emergency department s/p mechanical fall. As per patient, she was visiting her at a skilled nursing at which time she fell hitting her head on the wheelchair sustaining a laceration to the head. While in the ER as the laceration was being debrided she had a brief seizure at which time she experienced involuntary urinary incontinence. She denies any LOC. Primary Care Physician: Dr. Bravo - Physicial Exam PE: 11/24/18 18:42 GENERAL: Well-appearing, well-nourished. No apparent distress initially upon arrival. While examining the pt she had a brief tonic clonic seizure and urinary incontinence HEENT: + a 2 cm scalp laceration in Left parietal scalp w small brisk arterial bleed . EYES DINORA EOMI before seizure NECK no cervical midline tenderness CARDIOVASCULAR: Normal S1, S2. Regular rate and rhythm. PULMONARY: Clear to auscultation bilaterally. ABDOMEN: Soft, non-distended, non-tender. EXTREMITIES: Normal ROM in all four extremities before her seizure . No gross deformities. SKIN: Warm, dry. No rash NEUROLOGICAL: Initially she was alert and conversant ,moving all extremities and then had multiple brief tonic clonic seizures 11/24/18 18:48 - Critical Care Time Total Critical Care Time: 120 Critical Care Statement: The care of this patient involved high complexity decision making to prevent further life threatening deterioration of the patient 's condition and/or to evaluate & treat vital organ system(s) failure or risk of failure. - Medical Decision Making 11/24/18 18:46 EXAM: HEAD CT WITHOUT CONTRAST History: 70-year-old female status post trauma. Comparison: None Procedure: CT scan head, dated November 24, 2018 . Axial images obtained followed by coronal and sagittal reconstructions. Study performed unenhanced. Findings: Visualized portion of the paranasal sinuses, mastoid air cells, middle ear cavities and external ear canals are air filled. No evidence of depressed skull fracture. Ventriculomegaly is present, commensurate with dilatation to the basilar cisterns, sylvian fissures and cerebral sulci. Small vessel periventricular ischemic changes present. Basal ganglia calcifications noted. There is no evidence of an intra-or extra- axial mass lesion, mass-effect or bleed. Oneill-white differentiation is maintained. No hyperdense vessel sign identified. Thinning to the corpus callosum, consistent with aging. Craniocervical junction normal in appearance. Impression: No evidence of a depressed skull fracture nor intracranial bleed EXAM: CERVICAL SPINE CT W/O CONTR History: 78-year-old female; no history provided. Comparison: None Procedure: CT scan C Spine, dated November 24, 2018 . Axial images obtained followed by coronal and sagittal reconstructions. Study performed unenhanced. Findings: No prevertebral soft tissue swelling identified. No compromise to the cervical airway noted. No acute fracture or dislocation to the bones of the cervical spine evident. Cervicothoracic alignment intact. Degenerative disc disease C5-6 level. Neuroforaminal encroachment right side C4-5 and C5-6 levels related to uncovertebral joint hypertrophy and facet arthropathy. Lung apices are clear. Atherosclerotic change seen in the region of the carotid bulbs and the neck bilaterally. Impression: No acute fracture or dislocation of the cervical spine evident. Degenerative disc findings C5-6 level with neuroforaminal encroachment C4-5 and C5-6 levels. Read by: Zhen Moss MD 11/24/18 18:58 Due to her recurrent seizures she was intubated to protect her airway. ET 7.5 cm placed,good etco2, propofol gtt started Case discussed with neurology,pt had keppra ordered but Dr Nava did not want her to receive keppra at this time so it was held Reviewing labs reveals hyponatremia, anemia,hyperglycemia 19:36 Pt disconnected herself from the vent, placed on 3L nasal cannula and desaturated 93%, pt propofol increased and reconnected to vent. 11/24/18 20:02
[2018-11-25] MEDS: PROPOFOL 1,000,000 MCG/100 ML VIAL IVPB SCH ×2 (06:00)
[2018-11-25 06:21] LABS: HEMATOCRIT 22.5 % (32.4-45.2); HEMOGLOBIN 7.6 GM/dL (10.7-15.3); MEAN CELL VOLUME 69.7 fl (80-96); RBC 3.24 M/mm3 (3.60-5.2); WHITE BLOOD COUNT 6.4 K/mm3 (4.0-10.0)
[2018-11-25 06:22] LABS: BASO % 0.8 % (0-2.0); EOS % 2.6 % (0-4.5); LYMPH % 20.2 % (8-40); MCH 23.4 pg (25.7-33.7); MCHC 33.6 g/dl (32.0-36.0); MEAN PLT VOLUME 7.3 fl (7.5-11.1); MONO % 8.4 % (3.8-10.2); PLATELET COUNT 204 K/MM3 (134-434); RDW 15.7 % (11.6-15.6)
[2018-11-25 06:33] LABS: INR 1.03 (0.83-1.09); PROTHROMBIN TIME (PATIENT) 12.2 SEC (9.7-13.0)
[2018-11-25] MEDS ORDERED: DEXTROSE 50%-WATER 25 GM/50 ML DISP.SYRIN ONE (06:36)
[2018-11-25] MEDS ORDERED: DEXTROSE 50%-WATER - 25 GM/50 ML VIAL IVPUSH ONE (06:41)
[2018-11-25 07:18] LABS: ANION GAP 11 MMOL/L (8-16); BLOOD UREA NITROGEN 9 mg/dL (7-18); CALCIUM 7.8 mg/dL (8.5-10.1); CHLORIDE 97 mmol/L (98-107); CO2 23 mmol/L (21-32); CREATININE 0.5 mg/dL (0.55-1.3); GLUCOSE,RANDOM 74 mg/dL (74-106); MAGNESIUM 1.3 mg/dL (1.8-2.4); PHOSPHOROUS 2.5 mg/dL (2.5-4.9); SODIUM 131 mmol/L (136-145)
[2018-11-25 08:44] LABS: POTASSIUM 2.8 mmol/L (3.5-5.1)
[2018-11-25] MEDS ORDERED: MAGNESIUM SULF 50% (8.12 MEQ/2 ML-1 GM VIAL) IVPB ONE (08:45)
--- NOTE | 2018-11-25 08:51 | PN ---
Teaching Attending Note Name of Resident: Radha Card ATTENDING PHYSICIAN STATEMENT I saw and evaluated the patient. I reviewed the resident's note and discussed the case with the resident. I agree with the resident's findings and plan as documented. SUBJECTIVE:Extubated denies c/o throat irritation OBJECTIVE: Vital Signs Temperature 98 F 11/25/18 06:00 Pulse Rate 79 11/25/18 08:36 Respiratory Rate 16 11/25/18 08:36 Blood Pressure 140/60 11/25/18 08:36 O2 Sat by Pulse Oximetry (%) 100 11/25/18 08:24 Elderly F s/p Extubation not in distress HEENT: Mm moist, mild anemia, scalp lacereation stiched NECK: No JVd No Bruit CHEST: CTA B/L CVS: S1S2 r ABD: No distention, non tender BS + EXT: No edema feet, FINGERNAIL SCULPTURER: AOx3 non foca CBC, BMP 11/25/18 05:30 11/25/18 05:30 Active Medications Amlodipine Besylate (Norvasc -) 2.5 mg PO DAILY [facility] Aspirin (Ecotrin -) 81 mg PO DAILY [facility] Carvedilol (Coreg -) 25 mg PO BID [facility] Chlorhexidine Gluconate (Hibiclens For Decolonization -) 1 applic TP HS SRINATH Last Admin: 11/24/18 22:03 Dose: 1 applic Cholecalciferol (Vitamin D3 -) 1,000 unit PO DAILY [facility] Propofol (Diprivan -) 1,000,000 mcg in 100 mls @ 1.361 mls/hr IVPB TITR SRINATH; Protocol Last Titration: 11/25/18 08:25 Dose: 0 mcg/kg/min, 0 mls/hr Lactated Ringer's (Lactated Ringers Solution) 1,000 ml in 1,000 mls @ 75 mls/ hr IV ASDIR SRINATH Last Admin: 11/24/18 22:02 Dose: 75 mls/hr Insulin Aspart (Novolog Vial Sliding Scale -) 1 vial SQ Q4H SRINATH; Protocol Last Admin: 11/25/18 12:15 Dose: Not Given Levothyroxine Sodium (Synthroid -) 25 mcg PO AM SRINATH Losartan Potassium (Cozaar -) 25 mg PO AM SRINATH Mupirocin (Bactroban Ointment (For Decolonization) -) 1 applic NS BID SRINATH Stop: 11/29/18 21:59 Last Admin: 11/25/18 10:30 Dose: 1 applic Pantoprazole Sodium (Protonix Iv) 20 mg IVPUSH DAILY [facility] Last Admin: 11/25/18 09:58 Dose: 20 mg ASSESSMENT AND PLAN:78 year old female, with a significant past medical history of hypertension, diabetes, anemia, breast cancer, ovarian cancer, and recurrent vertigo, who presents to the emergency department s/p mechanical fall , patient had a small lacreation on the head, had a brief seizure while getting CTH intubted now extubated , evaluted by neurolgy recommonded [facility] witnessed seizures Problem List - Problems (1) Seizure Assessment/Plan: witnessed in the Ed on [place] observe for seizure , nerology recommondation, , EEG, rpt CT Head in am. Code(s): R56.9 - UNSPECIFIED CONVULSIONS (2) Head trauma Assessment/Plan: Due to fall Ist CT haed no acute changes F/U Neurolgy recommendation and rpt CT Head in am. Code(s): S09.90XA - UNSPECIFIED INJURY OF HEAD, INITIAL ENCOUNTER Qualifiers: Encounter type: initial encounter Qualified Code(s): S09.90XA - Unspecified injury of head, initial encounter (3) Hypothyroid Assessment/Plan: Cont Levothyroxione F/U TSH Code(s): E03.9 - HYPOTHYROIDISM, UNSPECIFIED (4) HTN (hypertension) Assessment/Plan: Well controlled on current meds Code(s): I10 - ESSENTIAL (PRIMARY) HYPERTENSION (5) Hypokalemia Assessment/Plan: Repleted F/U BMP Code(s): E87.6 - HYPOKALEMIA
--- NOTE | 2018-11-25 09:39 | CONSULT ---
Consult - text type - Consultation Consultation Note: Neurology CHIEF COMPLAINT: head injury, seizure PCP: Dr. Bravo HISTORY OF PRESENT ILLNESS: 78 y/o F with PMH HTN, HLD, DM, hypothyroid, hx 3 R sided rib fx 2019 s/p fall, hx breast and ovarian CA, who presents to the ED s/p mechanical fall on day of admission. All hx taken from chart and from ED providers, as pt intubated and sedated upon my examination. As per notes, the pt suffered a mechanical fall, tripping when visiting her in a NH. She subsequently suffered a 2cm laceration to her L forehead. Pt was brought to the ED for further evaluation. She did not have LOC, and was conversing with staff upon arrival. While in the ED, while her head laceration was being sutured, she had an event where she had R eye gaze deviation. Did not have tonic-clonic movements or post-ictal confusion. She later had another seizure of the same type when receiving a CTH lasting for 1 minute. During both episodes, pt was given ativan 2mg IVP (x2 total). She was intubated and sedated for "airway protection" as per ED staff. At one point, she attempted to disconnect herself from the vent, but desat to low 90's so it was reconnected. ROS unable to obtain d/t pt current sedated status. Admitted to ICU where she currently resides under critical care mgmt. Discussed with nurse and resident. Would not start AED at this time for one time event and in context of metabolic disturbances as described below. Events resolved on Ativan and with her on propofol. If event occurs again, then can start Keppra 500mg twice daily. Is waking up and may be able to be extubated today. CT head without acute changes. PAST MEDICAL HISTORY: as above otherwise negative PAST SURGICAL HISTORY: unable to obtain see above (vented, sedated) Social History: as above Smoking: Alcohol: Drugs: Family History: HTN Allergies oyster extract Allergy (Mild, Verified 11/24/18 17:01) Hives Penicillins Allergy (Mild, Verified 11/24/18 17:01) DON'T KNOW REACTION lisinopril Allergy (Verified 11/24/18 18:24) Cough shellfish derived Allergy (Verified 11/24/18 17:01) pioglitazone Adverse Reaction (Severe, Verified 11/24/18 18:24) falls WINE Allergy (Intermediate, Uncoded 11/24/18 17:01) Rash oyster extract *RETIRED-04/09/12 Allergy (Mild, Uncoded 11/24/18 17:01) Hives lobster Allergy (Unknown, Uncoded 11/24/18 17:01) HOME MEDICATIONS: Home Medications Medication Instructions Recorded Aspirin Coated [Ecotrin -] 81 mg PO DAILY 06/09/13 Cholecalciferol (Vitamin D3) 400 unit PO DAILY tablet 04/21/14 [Vitamin D -] Amlodipine Besylate 5 mg PO 1/2 tab daily 02/12/17 REVIEW OF SYSTEMS CONSTITUTIONAL: Absent: fever, chills, diaphoresis, generalized weakness, malaise, loss of appetite, weight change HEENT: Absent: rhinorrhea, nasal congestion, throat pain, throat swelling, difficulty swallowing, mouth swelling, ear pain, eye pain, visual changes CARDIOVASCULAR: Absent: chest pain, syncope, palpitations, irregular heart rate, lightheadedness , peripheral edema RESPIRATORY: Absent: cough, shortness of breath, dyspnea with exertion, orthopnea, wheezing, stridor, hemoptysis GASTROINTESTINAL: Absent: abdominal pain, abdominal distension, nausea, vomiting, diarrhea, constipation, melena, hematochezia GENITOURINARY: Absent: dysuria, frequency, urgency, hesitancy, hematuria, flank pain, genital pain MUSCULOSKELETAL: Absent: myalgia, arthralgia, joint swelling, back pain, neck pain SKIN: Absent: rash, itching, pallor HEMATOLOGIC/IMMUNOLOGIC: Absent: easy bleeding, easy bruising, lymphadenopathy, frequent infections ENDOCRINE: Absent: unexplained weight gain, unexplained weight loss, heat intolerance, cold intolerance NEUROLOGIC: +seizure Absent: headache, focal weakness or paresthesias, dizziness, unsteady gait, seizure, mental status changes, bladder or bowel incontinence PSYCHIATRIC: Absent: anxiety, depression, suicidal or homicidal ideation, hallucinations. PHYSICAL EXAMINATION Vital Signs - 24 hr 11/24/18 16:59 Temperature 98.8 F Pulse Rate 81 Pulse Rate [ Apical] Respiratory 18 Rate Blood Pressure 173/146 H Blood Pressure [Right Arm] O2 Sat by Pulse 100 Oximetry (%) 11/24/18 18:10 Temperature Pulse Rate Pulse Rate [ 68 Apical] Respiratory 16 Rate Blood Pressure Blood Pressure 139/82 [Right Arm] O2 Sat by Pulse 100 Oximetry (%) GENERAL: intubated, sedated. on vent. Awake, alert, and fully oriented, in no acute distress. HEAD: + L forehead laceration. approx 2cm. without active bleed. +sutures EYES: Pupils equal, round and reactive to light EARS, NOSE, THROAT: Ears normal, nares patent, oropharynx clear without exudates. Moist mucous membranes. NECK: Normal range of motion, supple LUNGS: Breath sounds equal, clear to auscultation bilaterally. No wheezes, and no crackles. No accessory muscle use. HEART: Regular rate and rhythm, normal S1 and S2 without murmur, rub or gallop. ABDOMEN: Soft, nontender, not distended, normoactive bowel sounds, no guarding UPPER EXTREMITIES: +swollen R wrist. without bruising. LOWER EXTREMITIES: 2+ dp pulses, warm, well-perfused. No calf tenderness. No peripheral edema. NEUROLOGICAL: intubated, sedated. Laboratory Results 11/24/18 11/24/18 11/24/18 17:18 17:18 17:18 WBC 5.3 Hgb 9.6 L Hct 29.8 L MCV 71.8 L Plt Count 235 Sodium 125 L Potassium 3.9 Chloride 91 L Carbon Dioxide 22 BUN 13 Creatinine 0.8 Random Glucose 200 H Ur Specific [place] 1.009 L Urine Protein 2+ H Urine Glucose (UA) 1+ H CTH: (-) for acute changes. ventriculomegaly, small vessel periventricular ischemic changes, thin corpus callosum, no fx or bleed. CXR: without acute changes. official read pending EKG: RBBB, qtc 472ms R hand, wrist XR: result pending ASSESSMENT/PLAN: 78 y/o F with PMH HTN, HLD, DM, hypothyroid, hx 3 R sided rib fx 2018 s/p fall, hx breast and ovarian CA, who presents to the ED s/p mechanical fall on day of admission. All hx taken from chart and from ED providers, as pt intubated and sedated upon my examination. As per notes, the pt suffered a mechanical fall, tripping when visiting her in a NH. She subsequently suffered a 2cm laceration to her L forehead. Pt was brought to the ED for further evaluation. She did not have LOC, and was conversing with staff upon arrival. While in the ED, while her head laceration was being sutured, she had an event where she had R eye gaze deviation. Did not have tonic-clonic movements or post-ictal confusion. She later had another seizure of the same type when receiving a CTH lasting for 1 minute. During both episodes, pt was given ativan 2mg IVP (x2 total). She was intubated and sedated for "airway protection" as per ED staff. At one point, she attempted to disconnect herself from the vent, but desat to low 90's so it was reconnected. ROS unable to obtain d/t pt current sedated status. Admitted to ICU where she currently resides under critical care mgmt. Discussed with nurse and resident. Would not start AED at this time for one time event and in context of metabolic disturbances as described below. Events resolved on Ativan and with her on propofol. If event occurs again, then can start Keppra 500mg twice daily. Is waking up and may be able to be extubated today. CT head without acute changes. Continue to monitor neurolgoic status. Correct underlying hyponatremia, hypoMag, hypoK, IV fluids as required. Treat metabolic derangements. Monitor bp, maintain normotensive range. Critical care time, 40 mins.
[2018-11-25 09:46] LABS: BASO % 0.7 % (0-2.0); EOS % 2.9 % (0-4.5); HEMATOCRIT 25.2 % (32.4-45.2); HEMOGLOBIN 8.3 GM/dL (10.7-15.3); LYMPH % 14.2 % (8-40); MCH 23.7 pg (25.7-33.7); MCHC 33.1 g/dl (32.0-36.0); MEAN CELL VOLUME 71.6 fl (80-96); MEAN PLT VOLUME 7.3 fl (7.5-11.1); MONO % 7.5 % (3.8-10.2); NEUT % 74.7 % (42.8-82.8); PLATELET COUNT 214 K/MM3 (134-434); RBC 3.52 M/mm3 (3.60-5.2); RDW 16.1 % (11.6-15.6); WHITE BLOOD COUNT 7.5 K/mm3 (4.0-10.0)
--- NOTE | 2018-11-25 09:53 | EKG ---
Test Reason : Blood Pressure : / mmHG Vent. Rate : 068 BPM Atrial Rate : 068 BPM P-R Int : 148 ms QRS Dur : 108 ms QT Int : 444 ms P-R-T Axes : -11 077 048 degrees QTc Int : 472 ms NORMAL SINUS RHYTHM RIGHT BUNDLE BRANCH BLOCK ABNORMAL ECG NO PREVIOUS ECGS AVAILABLE Confirmed by RONNIE GARCIA MD ([id number]) on 11/25/2018 9:53:34 AM Referred By: Confirmed By:RONNIE GARCIA MD
[2018-11-25] MEDS: PANTOPRAZOLE SODIUM 40 MG VIAL IVPUSH SCH (09:58)
[2018-11-25] MEDS ORDERED: PANTOPRAZOLE SODIUM 40 MG VIAL IVPUSH SCH (10:00)
[2018-11-25 10:09] LABS: ANION GAP 12 MMOL/L (8-16); BLOOD UREA NITROGEN 7 mg/dL (7-18); CALCIUM 7.9 mg/dL (8.5-10.1); CHLORIDE 95 mmol/L (98-107); CO2 24 mmol/L (21-32); CREATININE 0.7 mg/dL (0.55-1.3); GLUCOSE,RANDOM 167 mg/dL (74-106); MAGNESIUM 2.3 mg/dL (1.8-2.4); PHOSPHOROUS 2.9 mg/dL (2.5-4.9); SODIUM 131 mmol/L (136-145)
[2018-11-25] MEDS: MUPIROCIN 2% TOPICAL OINTMENT FOR DECOLONIZATION NS SCH ×2 (10:30→21:47)
[2018-11-25] MEDS ORDERED: POTASSIUM CHLORIDE TABS 20 MEQ TABLET.ER (FP) PO ONE ×2 (11:25→18:01)
--- NOTE | 2018-11-25 11:49 | PN ---
Physical Exam: SUBJECTIVE: Patient seen and examined, feeling fine, just extubated. OBJECTIVE: Vital Signs Period Temp Pulse Resp BP Sys/Mojica Pulse Ox Last 24 Hr 98 F-98.8 F 68-98 16-24 102-192/52-146 99-100 GENERAL: The patient is awake, alert, and fully oriented, in no acute distress. HEAD: Normal with no signs of trauma. EYES: PERRL, extraocular movements intact, sclera anicteric, conjunctiva clear. ENT: Oropharynx clear without exudates, moist mucous membranes, dentures. NECK: Trachea midline, full range of motion, supple. LUNGS: Clear to auscultation bilaterally, no wheezes, no crackles, no accessory muscle use. HEART: Regular rate and rhythm, S1, S2 without murmur, rub or gallop. ABDOMEN: Soft, nontender, nondistended, normoactive bowel sounds. EXTREMITIES: 2+ pulses, warm, no edema. NEUROLOGICAL: Normal speech, gait not observed. PSYCH: Normal mood, normal affect. SKIN: Warm, dry, normal turgor, no rashes. Laboratory Results - last 24 hr 11/24/18 11/24/18 11/24/18 17:13 17:18 17:18 WBC 5.3 RBC 4.15 Hgb 9.6 L Hct 29.8 L MCV 71.8 L MCH 23.1 L MCHC 32.3 RDW 15.8 H Plt Count 235 MPV 7.1 L Absolute Neuts (auto) 3.1 Neutrophils % 57.9 Lymphocytes % 26.9 Monocytes % 8.2 Eosinophils % 5.4 H Basophils % 1.6 Nucleated RBC % 0 PT with INR 11.50 INR 0.97 Sodium Potassium Chloride Carbon Dioxide Anion Gap BUN Creatinine Creat Clearance w eGFR POC Glucometer 192 Random Glucose Hemoglobin A1c % Serum Osmolality Calcium Phosphorus Magnesium Ferritin Total Bilirubin AST ALT Alkaline Phosphatase Creatine Kinase Creatine Kinase Index CK-MB (CK-2) Troponin I Total Protein Albumin Triglycerides Cholesterol Total LDL Cholesterol HDL Cholesterol Vitamin B12 Serum Folate TSH Urine Color Urine Appearance Urine pH Ur Specific [place] Urine Protein Urine Glucose (UA) Urine Ketones Urine Blood Urine Nitrite Urine Bilirubin Urine Urobilinogen Ur Leukocyte Esterase Urine WBC (Auto) Urine RBC (Auto) Urine Casts (Auto) U Epithel Cells (Auto) Urine Bacteria (Auto) Urine Osmolality Ur Random Creatinine Ur Random Sodium Ur Random Potassium Ur Random Chloride Blood Type Antibody Screen 11/24/18 11/24/18 11/24/18 17:18 17:18 17:18 WBC RBC Hgb Hct MCV MCH MCHC RDW Plt Count MPV Absolute Neuts (auto) Neutrophils % Lymphocytes % Monocytes % Eosinophils % Basophils % Nucleated RBC % PT with INR INR Sodium 125 L Potassium 3.9 Chloride 91 L Carbon Dioxide 22 Anion Gap 12 BUN 13 Creatinine 0.8 Creat Clearance w eGFR 69.37 POC Glucometer Random Glucose 200 H Hemoglobin A1c % Serum Osmolality Calcium 8.4 L Phosphorus Magnesium Ferritin Total Bilirubin 0.2 AST 17 ALT 21 Alkaline Phosphatase 69 Creatine Kinase 199 H Creatine Kinase Index 1.6 CK-MB (CK-2) 3.3 Troponin I < 0.02 Total Protein 6.4 Albumin 3.4 Triglycerides Cholesterol Total LDL Cholesterol HDL Cholesterol Vitamin B12 Serum Folate TSH Urine Color Yellow Urine Appearance Clear Urine pH 7.5 Ur Specific [place] 1.009 L Urine Protein 2+ H Urine Glucose (UA) 1+ H Urine Ketones Negative Urine Blood Trace Urine Nitrite Negative Urine Bilirubin Negative Urine Urobilinogen 0.2 Ur Leukocyte Esterase Negative Urine WBC (Auto) 0 Urine RBC (Auto) 2 Urine Casts (Auto) 1 U Epithel Cells (Auto) 0.1 Urine Bacteria (Auto) 2.5 Urine Osmolality Ur Random Creatinine Ur Random Sodium Ur Random Potassium Ur Random Chloride Blood Type O POSITIVE Antibody Screen Negative 11/24/18 11/24/18 11/24/18 21:45 21:45 21:50 WBC RBC Hgb Hct MCV MCH MCHC RDW Plt Count MPV Absolute Neuts (auto) Neutrophils % Lymphocytes % Monocytes % Eosinophils % Basophils % Nucleated RBC % PT with INR INR Sodium 130 L Potassium 4.3 Chloride 97 L Carbon Dioxide 22 Anion Gap 11 BUN 13 Creatinine 0.7 Creat Clearance w eGFR 80.93 POC Glucometer Random Glucose 190 H Hemoglobin A1c % Serum Osmolality 279 Calcium 7.7 L Phosphorus Magnesium Ferritin Total Bilirubin AST ALT Alkaline Phosphatase Creatine Kinase Creatine Kinase Index CK-MB (CK-2) Troponin I Total Protein Albumin Triglycerides 177 H Cholesterol 135 Total LDL Cholesterol 65 HDL Cholesterol 53 Vitamin B12 Serum Folate TSH 1.75 Urine Color Yellow Urine Appearance Clear Urine pH 6.0 Ur Specific [place] 1.012 Urine Protein Negative Urine Glucose (UA) 1+ H Urine Ketones Negative Urine Blood Negative Urine Nitrite Negative Urine Bilirubin Negative Urine Urobilinogen 0.2 Ur Leukocyte Esterase Negative Urine WBC (Auto) Urine RBC (Auto) Urine Casts (Auto) U Epithel Cells (Auto) Urine Bacteria (Auto) Urine Osmolality Ur Random Creatinine Ur Random Sodium Ur Random Potassium Ur Random Chloride Blood Type O POSITIVE Antibody Screen 11/24/18 11/24/18 11/24/18 21:50 21:50 21:50 WBC RBC Hgb Hct MCV MCH MCHC RDW Plt Count MPV Absolute Neuts (auto) Neutrophils % Lymphocytes % Monocytes % Eosinophils % Basophils % Nucleated RBC % PT with INR INR Sodium Potassium Chloride Carbon Dioxide Anion Gap BUN Creatinine Creat Clearance w eGFR POC Glucometer Random Glucose Hemoglobin A1c % Serum Osmolality Calcium Phosphorus Magnesium Ferritin Total Bilirubin AST ALT Alkaline Phosphatase Creatine Kinase Creatine Kinase Index CK-MB (CK-2) Troponin I Total Protein Albumin Triglycerides Cholesterol Total LDL Cholesterol HDL Cholesterol Vitamin B12 Serum Folate TSH Urine Color Urine Appearance Urine pH Ur Specific [place] Urine Protein Urine Glucose (UA) Urine Ketones Urine Blood Urine Nitrite Urine Bilirubin Urine Urobilinogen Ur Leukocyte Esterase Urine WBC (Auto) Urine RBC (Auto) Urine Casts (Auto) U Epithel Cells (Auto) Urine Bacteria (Auto) Urine Osmolality 409 Ur Random Creatinine 21 L Ur Random Sodium 109 Ur Random Potassium 38.0 Ur Random Chloride 142 Blood Type Antibody Screen 11/25/18 11/25/18 11/25/18 00:18 05:30 05:30 WBC 6.4 RBC 3.24 L Hgb 7.6 L Hct 22.5 L D MCV 69.7 L MCH 23.4 L MCHC 33.6 RDW 15.7 H Plt Count 204 MPV 7.3 L Absolute Neuts (auto) 4.4 Neutrophils % 68.0 Lymphocytes % 20.2 D Monocytes % 8.4 Eosinophils % 2.6 Basophils % 0.8 Nucleated RBC % 0 PT with INR 12.20 INR 1.03 Sodium Potassium Chloride Carbon Dioxide Anion Gap BUN Creatinine Creat Clearance w eGFR POC Glucometer 171 Random Glucose Hemoglobin A1c % Serum Osmolality Calcium Phosphorus Magnesium Ferritin Total Bilirubin AST ALT Alkaline Phosphatase Creatine Kinase Creatine Kinase Index CK-MB (CK-2) Troponin I Total Protein Albumin Triglycerides Cholesterol Total LDL Cholesterol HDL Cholesterol Vitamin B12 Serum Folate TSH Urine Color Urine Appearance Urine pH Ur Specific [place] Urine Protein Urine Glucose (UA) Urine Ketones Urine Blood Urine Nitrite Urine Bilirubin Urine Urobilinogen Ur Leukocyte Esterase Urine WBC (Auto) Urine RBC (Auto) Urine Casts (Auto) U Epithel Cells (Auto) Urine Bacteria (Auto) Urine Osmolality Ur Random Creatinine Ur Random Sodium Ur Random Potassium Ur Random Chloride Blood Type Antibody Screen 11/25/18 11/25/18 11/25/18 05:30 05:30 05:30 WBC RBC Hgb Hct MCV MCH MCHC RDW Plt Count MPV Absolute Neuts (auto) Neutrophils % Lymphocytes % Monocytes % Eosinophils % Basophils % Nucleated RBC % PT with INR INR Sodium 131 L Potassium 2.8 L* Chloride 97 L Carbon Dioxide 23 Anion Gap 11 BUN 9 Creatinine 0.5 L Creat Clearance w eGFR 119.33 POC Glucometer Random Glucose 74 Hemoglobin A1c % 7.9 H Serum Osmolality Calcium 7.8 L Phosphorus 2.5 Magnesium 1.3 L Ferritin 40.0 Total Bilirubin AST ALT Alkaline Phosphatase Creatine Kinase 643 H Creatine Kinase Index 1.6 CK-MB (CK-2) 10.3 H Troponin I Total Protein Albumin Triglycerides Cholesterol Total LDL Cholesterol HDL Cholesterol Vitamin B12 385 Serum Folate 19 H TSH Urine Color Urine Appearance Urine pH Ur Specific [place] Urine Protein Urine Glucose (UA) Urine Ketones Urine Blood Urine Nitrite Urine Bilirubin Urine Urobilinogen Ur Leukocyte Esterase Urine WBC (Auto) Urine RBC (Auto) Urine Casts (Auto) U Epithel Cells (Auto) Urine Bacteria (Auto) Urine Osmolality Ur Random Creatinine Ur Random Sodium Ur Random Potassium Ur Random Chloride Blood Type Antibody Screen 11/25/18 11/25/18 11/25/18 06:32 09:06 09:06 WBC 7.5 RBC 3.52 L Hgb 8.3 L Hct 25.2 L MCV 71.6 L MCH 23.7 L MCHC 33.1 RDW 16.1 H Plt Count 214 MPV 7.3 L Absolute Neuts (auto) 5.6 Neutrophils % 74.7 Lymphocytes % 14.2 D Monocytes % 7.5 Eosinophils % 2.9 Basophils % 0.7 Nucleated RBC % 0 PT with INR INR Sodium 131 L Potassium 3.0 L Chloride 95 L Carbon Dioxide 24 Anion Gap 12 BUN 7 Creatinine 0.7 Creat Clearance w eGFR 80.93 POC Glucometer 68 Random Glucose 167 H Hemoglobin A1c % Serum Osmolality Calcium 7.9 L Phosphorus 2.9 Magnesium 2.3 Ferritin Total Bilirubin AST ALT Alkaline Phosphatase Creatine Kinase Creatine Kinase Index CK-MB (CK-2) Troponin I Total Protein Albumin Triglycerides Cholesterol Total LDL Cholesterol HDL Cholesterol Vitamin B12 Serum Folate TSH Urine Color Urine Appearance Urine pH Ur Specific [place] Urine Protein Urine Glucose (UA) Urine Ketones Urine Blood Urine Nitrite Urine Bilirubin Urine Urobilinogen Ur Leukocyte Esterase Urine WBC (Auto) Urine RBC (Auto) Urine Casts (Auto) U Epithel Cells (Auto) Urine Bacteria (Auto) Urine Osmolality Ur Random Creatinine Ur Random Sodium Ur Random Potassium Ur Random Chloride Blood Type Antibody Screen 11/25/18 11:41 WBC RBC Hgb Hct MCV MCH MCHC RDW Plt Count MPV Absolute Neuts (auto) Neutrophils % Lymphocytes % Monocytes % Eosinophils % Basophils % Nucleated RBC % PT with INR INR Sodium Potassium Chloride Carbon Dioxide Anion Gap BUN Creatinine Creat Clearance w eGFR POC Glucometer 175 Random Glucose Hemoglobin A1c % Serum Osmolality Calcium Phosphorus Magnesium Ferritin Total Bilirubin AST ALT Alkaline Phosphatase Creatine Kinase Creatine Kinase Index CK-MB (CK-2) Troponin I Total Protein Albumin Triglycerides Cholesterol Total LDL Cholesterol HDL Cholesterol Vitamin B12 Serum Folate TSH Urine Color Urine Appearance Urine pH Ur Specific [place] Urine Protein Urine Glucose (UA) Urine Ketones Urine Blood Urine Nitrite Urine Bilirubin Urine Urobilinogen Ur Leukocyte Esterase Urine WBC (Auto) Urine RBC (Auto) Urine Casts (Auto) U Epithel Cells (Auto) Urine Bacteria (Auto) Urine Osmolality Ur Random Creatinine Ur Random Sodium Ur Random Potassium Ur Random Chloride Blood Type Antibody Screen Active Medications Generic Name Dose Route Start Last Admin Trade Name Anette PRN Reason Stop Dose Admin Chlorhexidine Gluconate 1 applic 11/24/18 22:00 11/24/18 22:03 Hibiclens For Decolonization - TP 1 applic HS SRINATH Administration Propofol 1,000,000 mcg in 100 mls @ 1.361 mls/hr 11/24/18 18:00 11/25/18 08: 25 Diprivan - IVPB 0 mcg/kg/min TITR SRINATH 0 mls/hr Titration Protocol 5 MCG/KG/MIN Lactated Ringer's 1,000 ml in 1,000 mls @ 75 mls/hr 11/24/18 21:51 11/24/18 22:02 Lactated Ringers Solution IV 75 mls/hr ASDIR SRINATH Administration Insulin Aspart 1 vial 11/24/18 20:15 11/25/18 11:45 Novolog Vial Sliding Scale - SQ 2 units Q4H SRINATH Administration Protocol Mupirocin 1 applic 11/24/18 22:00 11/25/18 10:30 Bactroban Ointment (For Decolonization) - NS 11/29/18 21:59 1 applic BID SRINATH Administration Pantoprazole Sodium 20 mg 11/25/18 10:00 11/25/18 09:58 Protonix Iv IVPUSH 20 mg DAILY SRINATH Administration ASSESSMENT/PLAN: 78 y/o F with PMH HTN, HLD, DM, hypothyroid, history of rib fractures, 2019 s/p fall, who presents to the ED s/p mechanical fall and s/p seizures, intubated and accepted to ICU. S/p mechanical fall and seizure episode: -extubated this morning -s/p ativan 2mg IVP x 2 in ED for two episodes, -Neurology consulted, will f/u recommendation, repeat CT head tonight, no Keppra recommended by neuro -f/u eeg -elevate HOB. prevent aspiration. sz precautions -head laceration, sutured, no fractures on xray Hyponatremia -pt has had over past few years high 120's, low 130's -131 today, will monitor Microcytic anemia -f/u iron studies, FOBT, b12, folate Hypothyroidism: -cont home meds -TSH nl HTN -initially uncontrolled, now stable -cont home meds DM -ISS, BGM -f/u a1c s/p breast and ovarian Ca F/E/N IV LR 75 cc/hr continue to follow lytes NPO PPX no heparin for now, r/o bleed on CT head SCD's GI PPX: Protonix Dispo ICU Problem List - Problems (1) HTN (hypertension) Code(s): I10 - ESSENTIAL (PRIMARY) HYPERTENSION (2) Head trauma Code(s): S09.90XA - UNSPECIFIED INJURY OF HEAD, INITIAL ENCOUNTER Qualifiers: Encounter type: initial encounter Qualified Code(s): S09.90XA - Unspecified injury of head, initial encounter (3) Hypothyroid Code(s): E03.9 - HYPOTHYROIDISM, UNSPECIFIED (4) Seizure Code(s): R56.9 - UNSPECIFIED CONVULSIONS (5) Fracture of ribs, three, closed Code(s): S22.49XA - MULTIPLE FRACTURES OF RIBS, UNSP SIDE, INIT FOR CLOS FX Qualifiers: Encounter type: initial encounter Laterality: right Qualified Code(s): S22.41XA - Multiple fractures of ribs, right side, initial encounter for closed fracture Visit type - Emergency Visit Emergency Visit: Yes ED Registration Date: 11/24/18 Care time: The patient presented to the Emergency Department on the above date and was hospitalized for further evaluation of their emergent condition. - New Patient This patient is new to me today: Yes Date on this admission: 11/25/18 - Critical Care Critical Care patient: Yes Total Critical Care Time (in minutes): 40 Critical Care Statement: The care of this patient involved high complexity decision making to prevent further life threatening deterioration of the patient 's condition and/or to evaluate & treat vital organ system(s) failure or risk of failure. - Discharge Referral Referred to [facility] Med P.C.: No
--- NOTE | 2018-11-25 11:58 | PN ---
Teaching Attending Note Name of Resident: Kvng Cortes ATTENDING PHYSICIAN STATEMENT I saw and evaluated the patient. I reviewed the resident's note and discussed the case with the resident. I agree with the resident's findings and plan as documented. SUBJECTIVE: Patient seen and examined in the ICU. Awake on CPAP, PEEP 5, PS 10. Able to follow commands. No pressors. Intake & Output 11/22/18 11/23/18 11/24/18 11/25/18 23:59 23:59 23:59 23:59 Intake Total 0 443 Output Total 1800 Balance 0 -1357 Weight 103 lb 4 oz 103 lb 4 oz Last Vital Signs Temp Pulse Resp BP Pulse Ox 98.5 F 95 H 18 146/62 100 11/25/18 10:30 11/25/18 10:30 11/25/18 10:30 11/25/18 10:30 11/25/18 09:15 Active Medications Chlorhexidine Gluconate (Hibiclens For Decolonization -) 1 applic TP HS [facility] Last Admin: 11/24/18 22:03 Dose: 1 applic Propofol (Diprivan -) 1,000,000 mcg in 100 mls @ 1.361 mls/hr IVPB TITR [facility]; Protocol Last Admin: 11/25/18 06:00 Dose: 50 mcg/kg/min, 13.608 mls/hr Lactated Ringer's (Lactated Ringers Solution) 1,000 ml in 1,000 mls @ 75 mls/ hr IV ASDIR SRINATH Last Admin: 11/24/18 22:02 Dose: 75 mls/hr Insulin Aspart (Novolog Vial Sliding Scale -) 1 vial SQ Q4H [facility]; Protocol Last Admin: 11/25/18 06:50 Dose: Not Given Mupirocin (Bactroban Ointment (For Decolonization) -) 1 applic NS BID SRINATH Stop: 11/29/18 21:59 Last Admin: 11/24/18 22:03 Dose: 1 applic Pantoprazole Sodium (Protonix Iv) 20 mg IVPUSH DAILY [facility] Last Admin: 11/25/18 09:58 Dose: 20 mg GENERAL: Awake on CPAP Mode of vent, able to follow commands HEAD: scalp frontal laceration with sutures, with dried blood, no active bleeding, swelling EYES: pupils normal; reactive; EOMS, not following LUNGS: few scattered rhonchi HEART: Regular rate and rhythm, normal S1 and S2 without murmur, rub or gallop. ABDOMEN: Soft, nontender, not distended, normoactive bowel sounds, no guarding, no rebound, no masses. No hepatomegaly or splenomegaly. UPPER EXTREMITIES: 2+ pulses, warm, well-perfused. No cyanosis. No clubbing. Cap refill <2 seconds. No peripheral edema. LOWER EXTREMITIES: 2+ pulses, warm, well-perfused. No calf tenderness. No peripheral edema. NEUROLOGICAL: non-focal SKIN: Warm, dry, normal turgor, no rashes or lesions noted. Laboratory Results - last 24 hr 11/24/18 11/24/18 11/24/18 17:13 17:18 17:18 WBC 5.3 RBC 4.15 Hgb 9.6 L Hct 29.8 L MCV 71.8 L MCH 23.1 L MCHC 32.3 RDW 15.8 H Plt Count 235 MPV 7.1 L Absolute Neuts (auto) 3.1 Neutrophils % 57.9 Lymphocytes % 26.9 Monocytes % 8.2 Eosinophils % 5.4 H Basophils % 1.6 Nucleated RBC % 0 PT with INR 11.50 INR 0.97 Sodium Potassium Chloride Carbon Dioxide Anion Gap BUN Creatinine Creat Clearance w eGFR POC Glucometer 192 Random Glucose Hemoglobin A1c % Serum Osmolality Calcium Phosphorus Magnesium Ferritin Total Bilirubin AST ALT Alkaline Phosphatase Creatine Kinase Creatine Kinase Index CK-MB (CK-2) Troponin I Total Protein Albumin Triglycerides Cholesterol Total LDL Cholesterol HDL Cholesterol Vitamin B12 Serum Folate TSH Urine Color Urine Appearance Urine pH Ur Specific [place] Urine Protein Urine Glucose (UA) Urine Ketones Urine Blood Urine Nitrite Urine Bilirubin Urine Urobilinogen Ur Leukocyte Esterase Urine WBC (Auto) Urine RBC (Auto) Urine Casts (Auto) U Epithel Cells (Auto) Urine Bacteria (Auto) Urine Osmolality Ur Random Creatinine Ur Random Sodium Ur Random Potassium Ur Random Chloride Blood Type Antibody Screen 11/24/18 11/24/18 11/24/18 17:18 17:18 17:18 WBC RBC Hgb Hct MCV MCH MCHC RDW Plt Count MPV Absolute Neuts (auto) Neutrophils % Lymphocytes % Monocytes % Eosinophils % Basophils % Nucleated RBC % PT with INR INR Sodium 125 L Potassium 3.9 Chloride 91 L Carbon Dioxide 22 Anion Gap 12 BUN 13 Creatinine 0.8 Creat Clearance w eGFR 69.37 POC Glucometer Random Glucose 200 H Hemoglobin A1c % Serum Osmolality Calcium 8.4 L Phosphorus Magnesium Ferritin Total Bilirubin 0.2 AST 17 ALT 21 Alkaline Phosphatase 69 Creatine Kinase 199 H Creatine Kinase Index 1.6 CK-MB (CK-2) 3.3 Troponin I < 0.02 Total Protein 6.4 Albumin 3.4 Triglycerides Cholesterol Total LDL Cholesterol HDL Cholesterol Vitamin B12 Serum Folate TSH Urine Color Yellow Urine Appearance Clear Urine pH 7.5 Ur Specific [place] 1.009 L Urine Protein 2+ H Urine Glucose (UA) 1+ H Urine Ketones Negative Urine Blood Trace Urine Nitrite Negative Urine Bilirubin Negative Urine Urobilinogen 0.2 Ur Leukocyte Esterase Negative Urine WBC (Auto) 0 Urine RBC (Auto) 2 Urine Casts (Auto) 1 U Epithel Cells (Auto) 0.1 Urine Bacteria (Auto) 2.5 Urine Osmolality Ur Random Creatinine Ur Random Sodium Ur Random Potassium Ur Random Chloride Blood Type O POSITIVE Antibody Screen Negative 11/24/18 11/24/18 11/24/18 21:45 21:45 21:50 WBC RBC Hgb Hct MCV MCH MCHC RDW Plt Count MPV Absolute Neuts (auto) Neutrophils % Lymphocytes % Monocytes % Eosinophils % Basophils % Nucleated RBC % PT with INR INR Sodium 130 L Potassium 4.3 Chloride 97 L Carbon Dioxide 22 Anion Gap 11 BUN 13 Creatinine 0.7 Creat Clearance w eGFR 80.93 POC Glucometer Random Glucose 190 H Hemoglobin A1c % Serum Osmolality 279 Calcium 7.7 L Phosphorus Magnesium Ferritin Total Bilirubin AST ALT Alkaline Phosphatase Creatine Kinase Creatine Kinase Index CK-MB (CK-2) Troponin I Total Protein Albumin Triglycerides 177 H Cholesterol 135 Total LDL Cholesterol 65 HDL Cholesterol 53 Vitamin B12 Serum Folate TSH 1.75 Urine Color Yellow Urine Appearance Clear Urine pH 6.0 Ur Specific [place] 1.012 Urine Protein Negative Urine Glucose (UA) 1+ H Urine Ketones Negative Urine Blood Negative Urine Nitrite Negative Urine Bilirubin Negative Urine Urobilinogen 0.2 Ur Leukocyte Esterase Negative Urine WBC (Auto) Urine RBC (Auto) Urine Casts (Auto) U Epithel Cells (Auto) Urine Bacteria (Auto) Urine Osmolality Ur Random Creatinine Ur Random Sodium Ur Random Potassium Ur Random Chloride Blood Type O POSITIVE Antibody Screen 11/24/18 11/24/18 11/24/18 21:50 21:50 21:50 WBC RBC Hgb Hct MCV MCH MCHC RDW Plt Count MPV Absolute Neuts (auto) Neutrophils % Lymphocytes % Monocytes % Eosinophils % Basophils % Nucleated RBC % PT with INR INR Sodium Potassium Chloride Carbon Dioxide Anion Gap BUN Creatinine Creat Clearance w eGFR POC Glucometer Random Glucose Hemoglobin A1c % Serum Osmolality Calcium Phosphorus Magnesium Ferritin Total Bilirubin AST ALT Alkaline Phosphatase Creatine Kinase Creatine Kinase Index CK-MB (CK-2) Troponin I Total Protein Albumin Triglycerides Cholesterol Total LDL Cholesterol HDL Cholesterol Vitamin B12 Serum Folate TSH Urine Color Urine Appearance Urine pH Ur Specific [place] Urine Protein Urine Glucose (UA) Urine Ketones Urine Blood Urine Nitrite Urine Bilirubin Urine Urobilinogen Ur Leukocyte Esterase Urine WBC (Auto) Urine RBC (Auto) Urine Casts (Auto) U Epithel Cells (Auto) Urine Bacteria (Auto) Urine Osmolality 409 Ur Random Creatinine 21 L Ur Random Sodium 109 Ur Random Potassium 38.0 Ur Random Chloride 142 Blood Type Antibody Screen 11/25/18 11/25/18 11/25/18 00:18 05:30 05:30 WBC 6.4 RBC 3.24 L Hgb 7.6 L Hct 22.5 L D MCV 69.7 L MCH 23.4 L MCHC 33.6 RDW 15.7 H Plt Count 204 MPV 7.3 L Absolute Neuts (auto) 4.4 Neutrophils % 68.0 Lymphocytes % 20.2 D Monocytes % 8.4 Eosinophils % 2.6 Basophils % 0.8 Nucleated RBC % 0 PT with INR 12.20 INR 1.03 Sodium Potassium Chloride Carbon Dioxide Anion Gap BUN Creatinine Creat Clearance w eGFR POC Glucometer 171 Random Glucose Hemoglobin A1c % Serum Osmolality Calcium Phosphorus Magnesium Ferritin Total Bilirubin AST ALT Alkaline Phosphatase Creatine Kinase Creatine Kinase Index CK-MB (CK-2) Troponin I Total Protein Albumin Triglycerides Cholesterol Total LDL Cholesterol HDL Cholesterol Vitamin B12 Serum Folate TSH Urine Color Urine Appearance Urine pH Ur Specific [place] Urine Protein Urine Glucose (UA) Urine Ketones Urine Blood Urine Nitrite Urine Bilirubin Urine Urobilinogen Ur Leukocyte Esterase Urine WBC (Auto) Urine RBC (Auto) Urine Casts (Auto) U Epithel Cells (Auto) Urine Bacteria (Auto) Urine Osmolality Ur Random Creatinine Ur Random Sodium Ur Random Potassium Ur Random Chloride Blood Type Antibody Screen 11/25/18 11/25/18 11/25/18 05:30 05:30 05:30 WBC RBC Hgb Hct MCV MCH MCHC RDW Plt Count MPV Absolute Neuts (auto) Neutrophils % Lymphocytes % Monocytes % Eosinophils % Basophils % Nucleated RBC % PT with INR INR Sodium 131 L Potassium 2.8 L* Chloride 97 L Carbon Dioxide 23 Anion Gap 11 BUN 9 Creatinine 0.5 L Creat Clearance w eGFR 119.33 POC Glucometer Random Glucose 74 Hemoglobin A1c % 7.9 H Serum Osmolality Calcium 7.8 L Phosphorus 2.5 Magnesium 1.3 L Ferritin 40.0 Total Bilirubin AST ALT Alkaline Phosphatase Creatine Kinase 643 H Creatine Kinase Index 1.6 CK-MB (CK-2) 10.3 H Troponin I Total Protein Albumin Triglycerides Cholesterol Total LDL Cholesterol HDL Cholesterol Vitamin B12 385 Serum Folate 19 H TSH Urine Color Urine Appearance Urine pH Ur Specific [place] Urine Protein Urine Glucose (UA) Urine Ketones Urine Blood Urine Nitrite Urine Bilirubin Urine Urobilinogen Ur Leukocyte Esterase Urine WBC (Auto) Urine RBC (Auto) Urine Casts (Auto) U Epithel Cells (Auto) Urine Bacteria (Auto) Urine Osmolality Ur Random Creatinine Ur Random Sodium Ur Random Potassium Ur Random Chloride Blood Type Antibody Screen 11/25/18 11/25/18 11/25/18 06:32 09:06 09:06 WBC 7.5 RBC 3.52 L Hgb 8.3 L Hct 25.2 L MCV 71.6 L MCH 23.7 L MCHC 33.1 RDW 16.1 H Plt Count 214 MPV 7.3 L Absolute Neuts (auto) 5.6 Neutrophils % 74.7 Lymphocytes % 14.2 D Monocytes % 7.5 Eosinophils % 2.9 Basophils % 0.7 Nucleated RBC % 0 PT with INR INR Sodium 131 L Potassium 3.0 L Chloride 95 L Carbon Dioxide 24 Anion Gap 12 BUN 7 Creatinine 0.7 Creat Clearance w eGFR 80.93 POC Glucometer 68 Random Glucose 167 H Hemoglobin A1c % Serum Osmolality Calcium 7.9 L Phosphorus 2.9 Magnesium 2.3 Ferritin Total Bilirubin AST ALT Alkaline Phosphatase Creatine Kinase Creatine Kinase Index CK-MB (CK-2) Troponin I Total Protein Albumin Triglycerides Cholesterol Total LDL Cholesterol HDL Cholesterol Vitamin B12 Serum Folate TSH Urine Color Urine Appearance Urine pH Ur Specific [place] Urine Protein Urine Glucose (UA) Urine Ketones Urine Blood Urine Nitrite Urine Bilirubin Urine Urobilinogen Ur Leukocyte Esterase Urine WBC (Auto) Urine RBC (Auto) Urine Casts (Auto) U Epithel Cells (Auto) Urine Bacteria (Auto) Urine Osmolality Ur Random Creatinine Ur Random Sodium Ur Random Potassium Ur Random Chloride Blood Type Antibody Screen 11/25/18 11:41 WBC RBC Hgb Hct MCV MCH MCHC RDW Plt Count MPV Absolute Neuts (auto) Neutrophils % Lymphocytes % Monocytes % Eosinophils % Basophils % Nucleated RBC % PT with INR INR Sodium Potassium Chloride Carbon Dioxide Anion Gap BUN Creatinine Creat Clearance w eGFR POC Glucometer 175 Random Glucose Hemoglobin A1c % Serum Osmolality Calcium Phosphorus Magnesium Ferritin Total Bilirubin AST ALT Alkaline Phosphatase Creatine Kinase Creatine Kinase Index CK-MB (CK-2) Troponin I Total Protein Albumin Triglycerides Cholesterol Total LDL Cholesterol HDL Cholesterol Vitamin B12 Serum Folate TSH Urine Color Urine Appearance Urine pH Ur Specific [place] Urine Protein Urine Glucose (UA) Urine Ketones Urine Blood Urine Nitrite Urine Bilirubin Urine Urobilinogen Ur Leukocyte Esterase Urine WBC (Auto) Urine RBC (Auto) Urine Casts (Auto) U Epithel Cells (Auto) Urine Bacteria (Auto) Urine Osmolality Ur Random Creatinine Ur Random Sodium Ur Random Potassium Ur Random Chloride Blood Type Antibody Screen ASSESSMENT/PLAN: Acute Respiratory Failure S/P fall with head laceration S/P witnessed seizure DM Hypothyroid HTN Microcytic anemia Hx breast and ovarian CA Wean to extubate CT Head VT prophylaxis Follow blood sugars IVF Follow Neuro exam Requires ICU monitoring - Critical Care Critical Care patient: Yes Total Critical Care Time (in minutes): 35 Critical Care Statement: The care of this patient involved high complexity decision making to prevent further life threatening deterioration of the patient 's condition and/or to evaluate & treat vital organ system(s) failure or risk of failure.
--- NOTE | 2018-11-25 13:59 | PN ---
Physical Exam: SUBJECTIVE: Patient seen and examined HD# 1 ICU D# 1 Intubation Da# 1 Overnight Events: Pt admitted to the unit overnight. No subsequent acute events. OBJECTIVE: Vital Signs Period Temp Pulse Resp BP Sys/Mojica Pulse Ox Last 24 Hr 98 F-98.8 F 68-101 16-24 102-192/52-146 99-100 Intake & Output 11/24/18 11/25/18 11/25/18 23:59 07:59 15:59 Intake Total 0 443 Output Total 1800 Balance 0 -1357 Weight 46.833 kg 46.833 kg Intake: IV 443 DIPRIVAN - 1,000,000 mcg 143 In 100 ml @ 5 MCG/KG/MIN 1.361 mls/hr IVPB TITR SRINATH Rx#:[id number] LACTATED RINGERS SOLUTION 300 1,000 ml In 1,000 ml @ 75 mls/hr IV ASDIR SRINATH Rx #:[id number] Oral 0 Output: Urine 1800 Storm 1800 Other: Voiding Method Indwelling Catheter Indwelling Catheter Bowel Movement No Height 1.52 m Body Mass Index (BMI) 20.1 Weight Measurement Method Built in [facility] Built in [facility] Weight Measurement Method Est/Stated by Patient Lines: - PIV Drains: - Storm Supplemental Oxygen: Ventilator: Mode: AC Vent rate: 16 Tv: 450 PEEP: 5 FiO2: 50% Physical Exams: GENERAL: The patient is sedated but opens eyes spontaneously and squeezes hands on command. HEAD: Sutured laceration to left forehead with ecchymosis over middle of forehead. LUNGS: Mechanically ventilated. Breath sounds equal, clear to auscultation bilaterally, no wheezes, no crackles, no accessory muscle use. HEART: Regular rate and rhythm, S1, S2 without murmur, rub or gallop. ABDOMEN: Soft and nondistended. EXTREMITIES: 2+ pulses, warm, well-perfused, no edema. PSYCH: Normal mood, normal affect. SKIN: Warm and dry Drips: - Propofol - Lactated Ringer Anti Infectives: - None Laboratory Results - last 24 hr 11/24/18 11/24/18 11/24/18 17:13 17:18 17:18 WBC 5.3 RBC 4.15 Hgb 9.6 L Hct 29.8 L MCV 71.8 L MCH 23.1 L MCHC 32.3 RDW 15.8 H Plt Count 235 MPV 7.1 L Absolute Neuts (auto) 3.1 Neutrophils % 57.9 Lymphocytes % 26.9 Monocytes % 8.2 Eosinophils % 5.4 H Basophils % 1.6 Nucleated RBC % 0 PT with INR 11.50 INR 0.97 Sodium Potassium Chloride Carbon Dioxide Anion Gap BUN Creatinine Creat Clearance w eGFR POC Glucometer 192 Random Glucose Hemoglobin A1c % Serum Osmolality Calcium Phosphorus Magnesium Ferritin Total Bilirubin AST ALT Alkaline Phosphatase Creatine Kinase Creatine Kinase Index CK-MB (CK-2) Troponin I Total Protein Albumin Triglycerides Cholesterol Total LDL Cholesterol HDL Cholesterol Vitamin B12 Serum Folate TSH Urine Color Urine Appearance Urine pH Ur Specific [place] Urine Protein Urine Glucose (UA) Urine Ketones Urine Blood Urine Nitrite Urine Bilirubin Urine Urobilinogen Ur Leukocyte Esterase Urine WBC (Auto) Urine RBC (Auto) Urine Casts (Auto) U Epithel Cells (Auto) Urine Bacteria (Auto) Urine Osmolality Ur Random Creatinine Ur Random Sodium Ur Random Potassium Ur Random Chloride Blood Type Antibody Screen 11/24/18 11/24/18 11/24/18 17:18 17:18 17:18 WBC RBC Hgb Hct MCV MCH MCHC RDW Plt Count MPV Absolute Neuts (auto) Neutrophils % Lymphocytes % Monocytes % Eosinophils % Basophils % Nucleated RBC % PT with INR INR Sodium 125 L Potassium 3.9 Chloride 91 L Carbon Dioxide 22 Anion Gap 12 BUN 13 Creatinine 0.8 Creat Clearance w eGFR 69.37 POC Glucometer Random Glucose 200 H Hemoglobin A1c % Serum Osmolality Calcium 8.4 L Phosphorus Magnesium Ferritin Total Bilirubin 0.2 AST 17 ALT 21 Alkaline Phosphatase 69 Creatine Kinase 199 H Creatine Kinase Index 1.6 CK-MB (CK-2) 3.3 Troponin I < 0.02 Total Protein 6.4 Albumin 3.4 Triglycerides Cholesterol Total LDL Cholesterol HDL Cholesterol Vitamin B12 Serum Folate TSH Urine Color Yellow Urine Appearance Clear Urine pH 7.5 Ur Specific [place] 1.009 L Urine Protein 2+ H Urine Glucose (UA) 1+ H Urine Ketones Negative Urine Blood Trace Urine Nitrite Negative Urine Bilirubin Negative Urine Urobilinogen 0.2 Ur Leukocyte Esterase Negative Urine WBC (Auto) 0 Urine RBC (Auto) 2 Urine Casts (Auto) 1 U Epithel Cells (Auto) 0.1 Urine Bacteria (Auto) 2.5 Urine Osmolality Ur Random Creatinine Ur Random Sodium Ur Random Potassium Ur Random Chloride Blood Type O POSITIVE Antibody Screen Negative 11/24/18 11/24/1819 21:45 21:45 21:50 WBC RBC Hgb Hct MCV MCH MCHC RDW Plt Count MPV Absolute Neuts (auto) Neutrophils % Lymphocytes % Monocytes % Eosinophils % Basophils % Nucleated RBC % PT with INR INR Sodium 130 L Potassium 4.3 Chloride 97 L Carbon Dioxide 22 Anion Gap 11 BUN 13 Creatinine 0.7 Creat Clearance w eGFR 80.93 POC Glucometer Random Glucose 190 H Hemoglobin A1c % Serum Osmolality 279 Calcium 7.7 L Phosphorus Magnesium Ferritin Total Bilirubin AST ALT Alkaline Phosphatase Creatine Kinase Creatine Kinase Index CK-MB (CK-2) Troponin I Total Protein Albumin Triglycerides 177 H Cholesterol 135 Total LDL Cholesterol 65 HDL Cholesterol 53 Vitamin B12 Serum Folate TSH 1.75 Urine Color Yellow Urine Appearance Clear Urine pH 6.0 Ur Specific [place] 1.012 Urine Protein Negative Urine Glucose (UA) 1+ H Urine Ketones Negative Urine Blood Negative Urine Nitrite Negative Urine Bilirubin Negative Urine Urobilinogen 0.2 Ur Leukocyte Esterase Negative Urine WBC (Auto) Urine RBC (Auto) Urine Casts (Auto) U Epithel Cells (Auto) Urine Bacteria (Auto) Urine Osmolality Ur Random Creatinine Ur Random Sodium Ur Random Potassium Ur Random Chloride Blood Type O POSITIVE Antibody Screen 11/24/18 11/24/18 11/24/18 21:50 21:50 21:50 WBC RBC Hgb Hct MCV MCH MCHC RDW Plt Count MPV Absolute Neuts (auto) Neutrophils % Lymphocytes % Monocytes % Eosinophils % Basophils % Nucleated RBC % PT with INR INR Sodium Potassium Chloride Carbon Dioxide Anion Gap BUN Creatinine Creat Clearance w eGFR POC Glucometer Random Glucose Hemoglobin A1c % Serum Osmolality Calcium Phosphorus Magnesium Ferritin Total Bilirubin AST ALT Alkaline Phosphatase Creatine Kinase Creatine Kinase Index CK-MB (CK-2) Troponin I Total Protein Albumin Triglycerides Cholesterol Total LDL Cholesterol HDL Cholesterol Vitamin B12 Serum Folate TSH Urine Color Urine Appearance Urine pH Ur Specific [place] Urine Protein Urine Glucose (UA) Urine Ketones Urine Blood Urine Nitrite Urine Bilirubin Urine Urobilinogen Ur Leukocyte Esterase Urine WBC (Auto) Urine RBC (Auto) Urine Casts (Auto) U Epithel Cells (Auto) Urine Bacteria (Auto) Urine Osmolality 409 Ur Random Creatinine 21 L Ur Random Sodium 109 Ur Random Potassium 38.0 Ur Random Chloride 142 Blood Type Antibody Screen 11/25/18 11/25/18 11/25/18 00:18 05:30 05:30 WBC 6.4 RBC 3.24 L Hgb 7.6 L Hct 22.5 L D MCV 69.7 L MCH 23.4 L MCHC 33.6 RDW 15.7 H Plt Count 204 MPV 7.3 L Absolute Neuts (auto) 4.4 Neutrophils % 68.0 Lymphocytes % 20.2 D Monocytes % 8.4 Eosinophils % 2.6 Basophils % 0.8 Nucleated RBC % 0 PT with INR 12.20 INR 1.03 Sodium Potassium Chloride Carbon Dioxide Anion Gap BUN Creatinine Creat Clearance w eGFR POC Glucometer 171 Random Glucose Hemoglobin A1c % Serum Osmolality Calcium Phosphorus Magnesium Ferritin Total Bilirubin AST ALT Alkaline Phosphatase Creatine Kinase Creatine Kinase Index CK-MB (CK-2) Troponin I Total Protein Albumin Triglycerides Cholesterol Total LDL Cholesterol HDL Cholesterol Vitamin B12 Serum Folate TSH Urine Color Urine Appearance Urine pH Ur Specific [place] Urine Protein Urine Glucose (UA) Urine Ketones Urine Blood Urine Nitrite Urine Bilirubin Urine Urobilinogen Ur Leukocyte Esterase Urine WBC (Auto) Urine RBC (Auto) Urine Casts (Auto) U Epithel Cells (Auto) Urine Bacteria (Auto) Urine Osmolality Ur Random Creatinine Ur Random Sodium Ur Random Potassium Ur Random Chloride Blood Type Antibody Screen 11/25/18 11/25/18 11/25/18 05:30 05:30 05:30 WBC RBC Hgb Hct MCV MCH MCHC RDW Plt Count MPV Absolute Neuts (auto) Neutrophils % Lymphocytes % Monocytes % Eosinophils % Basophils % Nucleated RBC % PT with INR INR Sodium 131 L Potassium 2.8 L* Chloride 97 L Carbon Dioxide 23 Anion Gap 11 BUN 9 Creatinine 0.5 L Creat Clearance w eGFR 119.33 POC Glucometer Random Glucose 74 Hemoglobin A1c % 7.9 H Serum Osmolality Calcium 7.8 L Phosphorus 2.5 Magnesium 1.3 L Ferritin 40.0 Total Bilirubin AST ALT Alkaline Phosphatase Creatine Kinase 643 H Creatine Kinase Index 1.6 CK-MB (CK-2) 10.3 H Troponin I Total Protein Albumin Triglycerides Cholesterol Total LDL Cholesterol HDL Cholesterol Vitamin B12 385 Serum Folate 19 H TSH Urine Color Urine Appearance Urine pH Ur Specific [place] Urine Protein Urine Glucose (UA) Urine Ketones Urine Blood Urine Nitrite Urine Bilirubin Urine Urobilinogen Ur Leukocyte Esterase Urine WBC (Auto) Urine RBC (Auto) Urine Casts (Auto) U Epithel Cells (Auto) Urine Bacteria (Auto) Urine Osmolality Ur Random Creatinine Ur Random Sodium Ur Random Potassium Ur Random Chloride Blood Type Antibody Screen 11/25/18 11/25/18 11/25/18 06:32 09:06 09:06 WBC 7.5 RBC 3.52 L Hgb 8.3 L Hct 25.2 L MCV 71.6 L MCH 23.7 L MCHC 33.1 RDW 16.1 H Plt Count 214 MPV 7.3 L Absolute Neuts (auto) 5.6 Neutrophils % 74.7 Lymphocytes % 14.2 D Monocytes % 7.5 Eosinophils % 2.9 Basophils % 0.7 Nucleated RBC % 0 PT with INR INR Sodium 131 L Potassium 3.0 L Chloride 95 L Carbon Dioxide 24 Anion Gap 12 BUN 7 Creatinine 0.7 Creat Clearance w eGFR 80.93 POC Glucometer 68 Random Glucose 167 H Hemoglobin A1c % Serum Osmolality Calcium 7.9 L Phosphorus 2.9 Magnesium 2.3 Ferritin Total Bilirubin AST ALT Alkaline Phosphatase Creatine Kinase Creatine Kinase Index CK-MB (CK-2) Troponin I Total Protein Albumin Triglycerides Cholesterol Total LDL Cholesterol HDL Cholesterol Vitamin B12 Serum Folate TSH Urine Color Urine Appearance Urine pH Ur Specific [place] Urine Protein Urine Glucose (UA) Urine Ketones Urine Blood Urine Nitrite Urine Bilirubin Urine Urobilinogen Ur Leukocyte Esterase Urine WBC (Auto) Urine RBC (Auto) Urine Casts (Auto) U Epithel Cells (Auto) Urine Bacteria (Auto) Urine Osmolality Ur Random Creatinine Ur Random Sodium Ur Random Potassium Ur Random Chloride Blood Type Antibody Screen 11/25/18 11:41 WBC RBC Hgb Hct MCV MCH MCHC RDW Plt Count MPV Absolute Neuts (auto) Neutrophils % Lymphocytes % Monocytes % Eosinophils % Basophils % Nucleated RBC % PT with INR INR Sodium Potassium Chloride Carbon Dioxide Anion Gap BUN Creatinine Creat Clearance w eGFR POC Glucometer 175 Random Glucose Hemoglobin A1c % Serum Osmolality Calcium Phosphorus Magnesium Ferritin Total Bilirubin AST ALT Alkaline Phosphatase Creatine Kinase Creatine Kinase Index CK-MB (CK-2) Troponin I Total Protein Albumin Triglycerides Cholesterol Total LDL Cholesterol HDL Cholesterol Vitamin B12 Serum Folate TSH Urine Color Urine Appearance Urine pH Ur Specific [place] Urine Protein Urine Glucose (UA) Urine Ketones Urine Blood Urine Nitrite Urine Bilirubin Urine Urobilinogen Ur Leukocyte Esterase Urine WBC (Auto) Urine RBC (Auto) Urine Casts (Auto) U Epithel Cells (Auto) Urine Bacteria (Auto) Urine Osmolality Ur Random Creatinine Ur Random Sodium Ur Random Potassium Ur Random Chloride Blood Type Antibody Screen Active Medications Generic Name Dose Route Start Last Admin Trade Name Freq PRN Reason Stop Dose Admin Amlodipine Besylate 2.5 mg 11/25/18 13:45 Norvasc - PO DAILY SRINATH Aspirin 81 mg 11/26/18 10:00 Ecotrin - PO DAILY SRINATH Carvedilol 25 mg 11/25/18 22:00 Coreg - PO BID SRINATH Chlorhexidine Gluconate 1 applic 11/24/18 22:00 11/24/18 22:03 Hibiclens For Decolonization - TP 1 applic HS SRINATH Administration Cholecalciferol 1,000 unit 11/26/18 10:00 Vitamin D3 - PO DAILY SRINATH Propofol 1,000,000 mcg in 100 mls @ 1.361 mls/hr 11/24/18 18:00 11/25/18 08: 25 Diprivan - IVPB 0 mcg/kg/min TITR SRINATH 0 mls/hr Titration Protocol 5 MCG/KG/MIN Lactated Ringer's 1,000 ml in 1,000 mls @ 75 mls/hr 11/24/18 21:51 11/24/18 22:02 Lactated Ringers Solution IV 75 mls/hr ASDIR SRINATH Administration Insulin Aspart 1 vial 11/24/18 20:15 11/25/18 12:15 Novolog Vial Sliding Scale - SQ Not Given Q4H [facility] Protocol Levothyroxine Sodium 25 mcg 11/26/18 07:00 Synthroid - PO AM SRINATH Losartan Potassium 25 mg 11/26/18 07:00 Cozaar - PO AM SRINATH Mupirocin 1 applic 11/24/18 22:00 11/25/18 10:30 Bactroban Ointment (For Decolonization) - NS 11/29/18 21:59 1 applic BID SRINATH Administration Pantoprazole Sodium 20 mg 11/25/18 10:00 11/25/18 09:58 Protonix Iv IVPUSH 20 mg DAILY SRINATH Administration ASSESSMENT/PLAN: 78 year old female who presents after fall with head laceration, witnessed seizure in ER with hyponatremia. Neuro (& Psych): - Consult Dr. Nava - Sedation held and pt found to be awake, alert, and following commands. - Seizures. Possibly secondary to metabolic derangement. Will replenish electrolytes. Will repeat head CT to evaluate for delayed signs of traumatic injury. Endocrine: - T2DM, A1C 7.9. Continue insulin sliding scale. - Hyponatremia. Improved overnight. Will continue to trend. - Hypothyroidism. TSH within normal limits. Will restart home levothyroxine. Cardiovascular: - HTN. Will restart home Amlodipine, Carvedilol, and Losartan. - HLD. Not on statin therapy. Pulm / Resp: - Intubated for airway protection. No further seizure activity witnessed. Pt tolerated CPAP trial on vent. Extubated during rounds without difficulty. Hematologic: - Microcytic anemia. Iron, folate, and B12 studies pending. Does not require transfusion at this time. Musculoskeletal - Laceration to forehead s/p closure with sutures - Possible radial styloid fracture noted on technically poor plain film. Will repeat film now that pt is extubated. FEN: - IVF: LR. - Will consider advancing diet if pt is able to tolerate bedside swallow test Prophylaxis: - DVT: SCDs - GI: Protonix Dispo: Pt to remain in ICU for post-extubation monitoring. Kvng Cortes MD, PGY1 ICU Consult Service Visit type - Emergency Visit Emergency Visit: No - New Patient This patient is new to me today: Yes Date on this admission: 11/25/18 - Critical Care Critical Care patient: Yes Total Critical Care Time (in minutes): 36 Critical Care Statement: The care of this patient involved high complexity decision making to prevent further life threatening deterioration of the patient 's condition and/or to evaluate & treat vital organ system(s) failure or risk of failure.
[2018-11-25] MEDS: amLODIPine BESYLATE 5 MG TABLET (FP) PO SCH (16:42)
[2018-11-25] MEDS ORDERED: INSULIN SLIDING SCALE (NOVOLOG) 1 VIAL SQ SCH (18:00)
[2018-11-25 21:24] LABS: ANION GAP 8 MMOL/L (8-16); BLOOD UREA NITROGEN 8 mg/dL (7-18); CALCIUM 7.5 mg/dL (8.5-10.1); CHLORIDE 98 mmol/L (98-107); CO2 26 mmol/L (21-32); CREATININE 0.9 mg/dL (0.55-1.3); POTASSIUM 3.8 mmol/L (3.5-5.1); SODIUM 131 mmol/L (136-145)
[2018-11-25 21:48] LABS: GLUCOSE,RANDOM 347 mg/dL (74-106)
[2018-11-25] MEDS ORDERED: INSULIN REGULAR HUMAN 100 UNITS/ML *VIAL IVPUSH ONE (22:12)
[2018-11-25] MEDS ORDERED: ACETAMINOPHEN 325 MG TABLET (FP) PO PRN (22:40)
--- NOTE | 2018-11-25 22:47 | PN ---
Progress Note (short form) - Note Progress Note: called to eval right hand swelling; repeat xray not done yet; previous with possible fracture -will change peripheral line from right hand to left -wrap hand/wrist -elevate -repat xray -Tylenol for pain -of note patient with CK of 690; r/o rhabdo from fall; -UA -IVF -repeat ck in am
[2018-11-25] MEDS: CHLORHEXIDINE GLUCONATE 4% CLEANSER FOR DECOLONIZATION TP SCH (22:50)
[2018-11-25] MEDS: CARVEDILOL 25 MG TABLET (FP) PO SCH (22:50)
[2018-11-25] MEDS: LACTATED RINGERS SOLUTION 1,000 ML/1,000 ML INFUS.BAG IV SCH (23:02)
[2018-11-26] MEDS: INSULIN SLIDING SCALE (NOVOLOG) 1 VIAL SQ SCH ×4 (06:16→22:00)
[2018-11-26 06:59] LABS: EOS % 2.9 % (0-4.5); MCH 23.3 pg (25.7-33.7); MEAN CELL VOLUME 70.7 fl (80-96); MEAN PLT VOLUME 7.4 fl (7.5-11.1); MONO % 8.6 % (3.8-10.2); NEUT % 73.5 % (42.8-82.8); PLATELET COUNT 186 K/MM3 (134-434); RBC 2.83 M/mm3 (3.60-5.2); RDW 15.5 % (11.6-15.6); WHITE BLOOD COUNT 8.7 K/mm3 (4.0-10.0)
[2018-11-26] MEDS ORDERED: LOSARTAN POTASSIUM 25 MG TABLET PO SCH (07:00)
[2018-11-26] MEDS ORDERED: LEVOTHYROXINE NA 25 MCG TABLET (FP) PO SCH (07:00)
[2018-11-26 07:13] LABS: HEMOGLOBIN 6.6 GM/dL (10.7-15.3)
[2018-11-26 07:19] LABS: ALBUMIN 2.7 g/dl (3.4-5.0); ALK PHOS 36 U/L (45-117); ANION GAP 9 MMOL/L (8-16); BILIRUBIN,TOTAL 0.4 mg/dL (0.2-1); BLOOD UREA NITROGEN 11 mg/dL (7-18); CALCIUM 7.6 mg/dL (8.5-10.1); CHLORIDE 103 mmol/L (98-107); CO2 26 mmol/L (21-32); CREATININE 0.6 mg/dL (0.55-1.3); GLUCOSE,RANDOM 64 mg/dL (74-106); MAGNESIUM 1.9 mg/dL (1.8-2.4); PHOSPHOROUS 2.6 mg/dL (2.5-4.9); POTASSIUM 3.4 mmol/L (3.5-5.1); SGOT/AST 17 U/L (15-37); SGPT/ALT 15 U/L (13-61); SODIUM 138 mmol/L (136-145); TOT PROT 5.1 g/dl (6.4-8.2)
[2018-11-26 08:45] LABS: BASO % 0.7 % (0-2.0); EOS % 3.2 % (0-4.5); HEMATOCRIT 21.1 % (32.4-45.2); LYMPH % 14.2 % (8-40); MCH 23.1 pg (25.7-33.7); MCHC 32.5 g/dl (32.0-36.0); MONO % 7.8 % (3.8-10.2); NEUT % 74.1 % (42.8-82.8); PLATELET COUNT 194 K/MM3 (134-434); RBC 2.97 M/mm3 (3.60-5.2); RDW 15.5 % (11.6-15.6); WHITE BLOOD COUNT 8.5 K/mm3 (4.0-10.0)
[2018-11-26 08:47] LABS: HEMOGLOBIN 6.9 GM/dL (10.7-15.3)
[2018-11-26] MEDS: amLODIPine BESYLATE 5 MG TABLET (FP) PO SCH (09:24)
[2018-11-26] MEDS: PANTOPRAZOLE SODIUM 40 MG VIAL IVPUSH SCH (09:24)
[2018-11-26] MEDS: CARVEDILOL 25 MG TABLET (FP) PO SCH ×2 (09:25→22:01)
--- NOTE | 2018-11-26 09:35 | PN ---
Progress Note (short form) - Note Progress Note: Neurology CHIEF COMPLAINT: head injury, seizure HISTORY OF PRESENT ILLNESS: 78 y/o F with PMH HTN, HLD, DM, hypothyroid, hx 3 R sided rib fx 2019 s/p fall, hx breast and ovarian CA, who presents to the ED s/p mechanical fall on day of admission. All hx taken from chart and from ED providers, as pt intubated and sedated upon my examination. As per notes, the pt suffered a mechanical fall, tripping when visiting her in a NH. She subsequently suffered a 2cm laceration to her L forehead. Pt was brought to the ED for further evaluation. She did not have LOC, and was conversing with staff upon arrival. While in the ED, while her head laceration was being sutured, she had an event where she had R eye gaze deviation. Did not have tonic-clonic movements or post-ictal confusion. She later had another seizure of the same type when receiving a CTH lasting for 1 minute. During both episodes, pt was given ativan 2mg IVP (x2 total). She was intubated and sedated for "airway protection" as per ED staff. At one point, she attempted to disconnect herself from the vent, but desat to low 90's so it was reconnected. Admitted to ICU where she currently resides under critical care mgmt. Did not start AED at this time for one time event and in context of metabolic disturbances as described below. Events resolved on Ativan and with her on propofol. If event occurs again, then can start Keppra 500mg twice daily. Has woken up and now alert, responsive, verbal. CT head repeated and without acute changes. H/H remains low, ICU to check stool, further mgmt for anemia. Patient to receive PRBC and possibly GI consult. Active Medications Acetaminophen (Tylenol -) 650 mg PO Q4H PRN PRN Reason: PAIN LEVEL 1-5 Last Admin: 11/25/18 23:26 Dose: 650 mg Amlodipine Besylate (Norvasc -) 2.5 mg PO DAILY [facility] Last Admin: 11/26/18 09:24 Dose: 2.5 mg Aspirin (Ecotrin -) 81 mg PO DAILY [facility] Last Admin: 11/26/18 09:24 Dose: 81 mg Carvedilol (Coreg -) 25 mg PO BID [facility] Last Admin: 11/26/18 09:25 Dose: 25 mg Chlorhexidine Gluconate (Hibiclens For Decolonization -) 1 applic TP HS [facility] Last Admin: 11/25/18 22:50 Dose: 1 applic Cholecalciferol (Vitamin D3 -) 1,000 unit PO DAILY [facility] Last Admin: 11/26/18 09:24 Dose: 1,000 unit Lactated Ringer's (Lactated Ringers Solution) 1,000 ml in 1,000 mls @ 75 mls/ hr IV ASDIR [facility] Last Admin: 11/25/18 23:02 Dose: 75 mls/hr Insulin Aspart (Novolog Vial Sliding Scale -) 1 vial SQ ACHS [facility]; Protocol Last Admin: 11/26/18 06:16 Dose: Not Given Levothyroxine Sodium (Synthroid -) 25 mcg PO AM [facility] Last Admin: 11/26/18 06:15 Dose: 25 mcg Losartan Potassium (Cozaar -) 25 mg PO AM [facility] Last Admin: 11/26/18 06:15 Dose: 25 mg Mupirocin (Bactroban Ointment (For Decolonization) -) 1 applic NS BID [facility] Stop: 11/29/18 21:59 Last Admin: 11/25/18 21:47 Dose: 1 applic Pantoprazole Sodium (Protonix Iv) 20 mg IVPUSH DAILY [facility] Last Admin: 11/26/18 09:24 Dose: 20 mg PHYSICAL EXAMINATION Vital Signs Period Temp Pulse Resp BP Sys/Mojica Pulse Ox Last 24 Hr 97.6 F-99.9 F 78-111 18-24 85-169/38-86 99-100 GENERAL: intubated, sedated. on vent. Awake, alert, and fully oriented, in no acute distress. HEAD: + L forehead laceration. approx 2cm. without active bleed. +sutures EYES: Pupils equal, round and reactive to light EARS, NOSE, THROAT: Ears normal, nares patent, oropharynx clear without exudates. Moist mucous membranes. NECK: Normal range of motion, supple LUNGS: Breath sounds equal, clear to auscultation bilaterally. No wheezes, and no crackles. No accessory muscle use. HEART: Regular rate and rhythm, normal S1 and S2 without murmur, rub or gallop. ABDOMEN: Soft, nontender, not distended, normoactive bowel sounds, no guarding UPPER EXTREMITIES: +swollen R wrist. without bruising. LOWER EXTREMITIES: 2+ dp pulses, warm, well-perfused. No calf tenderness. No peripheral edema. NEUROLOGICAL: intubated, sedated. CBCD WBC 8.5 K/mm3 (4.0-10.0) 11/26/18 08:30 RBC 2.97 M/mm3 (3.60-5.2) L 11/26/18 08:30 Hgb 6.9 GM/dL (10.7-15.3) L* 11/26/18 08:30 Hct 21.1 % (32.4-45.2) L 11/26/18 08:30 MCV 71.0 fl (80-96) L 11/26/18 08:30 MCHC 32.5 g/dl (32.0-36.0) 11/26/18 08:30 RDW 15.5 % (11.6-15.6) 11/26/18 08:30 Plt Count 194 K/MM3 (134-434) 11/26/18 08:30 MPV 7.0 fl (7.5-11.1) L 11/26/18 08:30 CMP Sodium 138 mmol/L (136-145) 11/26/18 05:30 Potassium 3.4 mmol/L (3.5-5.1) L 11/26/18 05:30 Chloride 103 mmol/L (98-107) 11/26/18 05:30 Carbon Dioxide 26 mmol/L (21-32) 11/26/18 05:30 Anion Gap 9 MMOL/L (8-16) 11/26/18 05:30 BUN 11 mg/dL (7-18) 11/26/18 05:30 Creatinine 0.6 mg/dL (0.55-1.3) 11/26/18 05:30 Creat Clearance w eGFR 96.69 (>60) 11/26/18 05:30 Random Glucose 64 mg/dL (74-106) L 11/26/18 05:30 Calcium 7.6 mg/dL (8.5-10.1) L 11/26/18 05:30 Total Bilirubin 0.4 mg/dL (0.2-1) 11/26/18 05:30 AST 17 U/L (15-37) 11/26/18 05:30 ALT 15 U/L (13-61) 11/26/18 05:30 Alkaline Phosphatase 36 U/L (45-117) L 11/26/18 05:30 Total Protein 5.1 g/dl (6.4-8.2) L 11/26/18 05:30 Albumin 2.7 g/dl (3.4-5.0) L 11/26/18 05:30 CARDIAC ENZYMES Creatine Kinase 295 U/L (26-192) H 11/26/18 05:30 Troponin I < 0.02 ng/ml (0.00-0.05) 11/24/18 17:18 CTH: (-) for acute changes. ventriculomegaly, small vessel periventricular ischemic changes, thin corpus callosum, no fx or bleed. CXR: without acute changes. repeated EKG: RBBB, qtc 472ms R hand, wrist XR: result pending ASSESSMENT/PLAN: 78 y/o F with PMH HTN, HLD, DM, hypothyroid, hx 3 R sided rib fx 2019 s/p fall, hx breast and ovarian CA, who presents to the ED s/p mechanical fall on day of admission. All hx taken from chart and from ED providers, as pt intubated and sedated upon my examination. As per notes, the pt suffered a mechanical fall, tripping when visiting her in a NH. She subsequently suffered a 2cm laceration to her L forehead. Pt was brought to the ED for further evaluation. She did not have LOC, and was conversing with staff upon arrival. While in the ED, while her head laceration was being sutured, she had an event where she had R eye gaze deviation. Did not have tonic-clonic movements or post-ictal confusion. She later had another seizure of the same type when receiving a CTH lasting for 1 minute. During both episodes, pt was given ativan 2mg IVP (x2 total). She was intubated and sedated for "airway protection" as per ED staff. At one point, she attempted to disconnect herself from the vent, but desat to low 90's so it was reconnected. ROS unable to obtain d/t pt current sedated status. Admitted to ICU where she currently resides under critical care mgmt. Discussed with nurse and resident. Would not start AED at this time for one time event and in context of metabolic disturbances as described below. Events resolved on Ativan and with her on propofol. If event occurs again, then can start Keppra 500mg twice daily. Admitted to ICU where she currently resides under critical care mgmt. Did not start AED at this time for one time event and in context of metabolic disturbances as described below. Events resolved on Ativan and with her on propofol. If event occurs again, then can start Keppra 500mg twice daily. Has woken up and now alert, responsive, verbal. CT head repeated and without acute changes. H/H remains low, ICU to check stool, further mgmt for anemia. Patient to receive PRBC and possibly GI consult. Continue to monitor neurolgoic status. Correct underlying hyponatremia, hypoMag , hypoK, IV fluids as required. Treat metabolic derangements. Monitor bp, maintain normotensive range. Critical care time, 40 mins.
[2018-11-26] MEDS: MUPIROCIN 2% TOPICAL OINTMENT FOR DECOLONIZATION NS SCH (10:00)
[2018-11-26] MEDS ORDERED: ASPIRIN COATED 81 MG TABLET.EC PO SCH (10:00)
[2018-11-26] MEDS ORDERED: CHOLECALCIFEROL (VITAMIN D3) 1,000 UNIT TABLET (FP) PO SCH (10:00)
--- NOTE | 2018-11-26 11:58 | PN ---
Teaching Attending Note Name of Resident: Kvng Cortes ATTENDING PHYSICIAN STATEMENT I saw and evaluated the patient. I reviewed the resident's note and discussed the case with the resident. I agree with the resident's findings and plan as documented. SUBJECTIVE: Patient seen and examined in the ICU. Extubated. Awake and alert. Worsening anemia noted. No CP or SOB. No obvious occult bleeding noted. No pressors. Intake & Output 11/23/18 11/24/18 11/25/18 11/26/18 23:59 23:59 23:59 23:59 Intake Total 0 1983 1250 Output Total 3150 Balance 0 -1167 1250 Weight 103 lb 4 oz 103 lb 4 oz 102 lb 14.4 oz Last Vital Signs Temp Pulse Resp BP Pulse Ox 97.9 F 85 16 121/46 L 100 11/26/18 10:00 11/26/18 10:00 11/26/18 10:00 11/26/18 10:00 11/26/18 09:00 Active Medications Acetaminophen (Tylenol -) 650 mg PO Q4H PRN PRN Reason: PAIN LEVEL 1-5 Last Admin: 11/25/18 23:26 Dose: 650 mg Amlodipine Besylate (Norvasc -) 2.5 mg PO DAILY [facility] Last Admin: 11/26/18 09:24 Dose: 2.5 mg Aspirin (Ecotrin -) 81 mg PO DAILY [facility] Last Admin: 11/26/18 09:24 Dose: 81 mg Carvedilol (Coreg -) 25 mg PO BID [facility] Last Admin: 11/26/18 09:25 Dose: 25 mg Chlorhexidine Gluconate (Hibiclens For Decolonization -) 1 applic TP HS [facility] Last Admin: 11/25/18 22:50 Dose: 1 applic Cholecalciferol (Vitamin D3 -) 1,000 unit PO DAILY [facility] Last Admin: 11/26/18 09:24 Dose: 1,000 unit Lactated Ringer's (Lactated Ringers Solution) 1,000 ml in 1,000 mls @ 75 mls/ hr IV ASDIR [facility] Last Admin: 11/25/18 23:02 Dose: 75 mls/hr Insulin Aspart (Novolog Vial Sliding Scale -) 1 vial SQ ACHS [facility]; Protocol Last Admin: 11/26/18 11:49 Dose: 4 units Levothyroxine Sodium (Synthroid -) 25 mcg PO AM [facility] Last Admin: 11/26/18 06:15 Dose: 25 mcg Losartan Potassium (Cozaar -) 25 mg PO AM [facility] Last Admin: 11/26/18 06:15 Dose: 25 mg Mupirocin (Bactroban Ointment (For Decolonization) -) 1 applic NS BID [facility] Stop: 11/29/18 21:59 Last Admin: 11/26/18 10:00 Dose: 1 applic Pantoprazole Sodium (Protonix Iv) 20 mg IVPUSH DAILY [facility] Last Admin: 11/26/18 09:24 Dose: 20 mg GENERAL: Awake and alert, on CPAP Mode of vent, able to follow commands HEAD: scalp frontal laceration with sutures, with dried blood, no active bleeding, swelling EYES: pupils normal; reactive; EOMS, not following LUNGS: few scattered rhonchi HEART: Regular rate and rhythm, normal S1 and S2 without murmur, rub or gallop. ABDOMEN: Soft, nontender, not distended, normoactive bowel sounds, no guarding, no rebound, no masses. No hepatomegaly or splenomegaly. UPPER EXTREMITIES: 2+ pulses, warm, well-perfused. No cyanosis. No clubbing. Cap refill <2 seconds. No peripheral edema. LOWER EXTREMITIES: 2+ pulses, warm, well-perfused. No calf tenderness. No peripheral edema. NEUROLOGICAL: non-focal SKIN: Warm, dry, normal turgor, no rashes or lesions noted. Laboratory Results - last 24 hr 11/24/18 11/25/18 11/25/18 17:18 16:25 20:30 WBC RBC Hgb Hct MCV MCH MCHC RDW Plt Count MPV Absolute Neuts (auto) Neutrophils % Lymphocytes % Monocytes % Eosinophils % Basophils % Nucleated RBC % Sodium 131 L Potassium 3.8 Chloride 98 Carbon Dioxide 26 Anion Gap 8 BUN 8 Creatinine 0.9 Creat Clearance w eGFR 60.56 POC Glucometer 112 Random Glucose 347 H* Hemoglobin A1c % Calcium 7.5 L Phosphorus Magnesium Total Bilirubin AST ALT Alkaline Phosphatase Creatine Kinase Creatine Kinase Index CK-MB (CK-2) Total Protein Albumin Blood Type O POSITIVE Antibody Screen Negative Crossmatch See Detail 11/26/18 11/26/18 11/26/18 05:30 05:30 05:30 WBC 8.7 RBC 2.83 L Hgb 6.6 L* Hct 20.0 L D MCV 70.7 L MCH 23.3 L MCHC 33.0 RDW 15.5 Plt Count 186 MPV 7.4 L Absolute Neuts (auto) 6.4 Neutrophils % 73.5 Lymphocytes % 14.0 Monocytes % 8.6 Eosinophils % 2.9 Basophils % 1.0 Nucleated RBC % 0 Sodium 138 Potassium 3.4 L Chloride 103 Carbon Dioxide 26 Anion Gap 9 BUN 11 Creatinine 0.6 Creat Clearance w eGFR 96.69 POC Glucometer Random Glucose 64 L Hemoglobin A1c % 7.1 H Calcium 7.6 L Phosphorus 2.6 Magnesium 1.9 Total Bilirubin 0.4 AST 17 ALT 15 Alkaline Phosphatase 36 L Creatine Kinase Creatine Kinase Index CK-MB (CK-2) Total Protein 5.1 L Albumin 2.7 L Blood Type Antibody Screen Crossmatch 11/26/18 11/26/18 11/26/18 05:30 06:11 08:30 WBC 8.5 RBC 2.97 L Hgb 6.9 L* Hct 21.1 L MCV 71.0 L MCH 23.1 L MCHC 32.5 RDW 15.5 Plt Count 194 MPV 7.0 L Absolute Neuts (auto) 6.3 Neutrophils % 74.1 Lymphocytes % 14.2 Monocytes % 7.8 Eosinophils % 3.2 Basophils % 0.7 Nucleated RBC % 0 Sodium Potassium Chloride Carbon Dioxide Anion Gap BUN Creatinine Creat Clearance w eGFR POC Glucometer 66 Random Glucose Hemoglobin A1c % Calcium Phosphorus Magnesium Total Bilirubin AST ALT Alkaline Phosphatase Creatine Kinase 295 H Creatine Kinase Index 0.7 CK-MB (CK-2) 2.2 Total Protein Albumin Blood Type Antibody Screen Crossmatch 11/26/18 11:38 WBC RBC Hgb Hct MCV MCH MCHC RDW Plt Count MPV Absolute Neuts (auto) Neutrophils % Lymphocytes % Monocytes % Eosinophils % Basophils % Nucleated RBC % Sodium Potassium Chloride Carbon Dioxide Anion Gap BUN Creatinine Creat Clearance w eGFR POC Glucometer 207 Random Glucose Hemoglobin A1c % Calcium Phosphorus Magnesium Total Bilirubin AST ALT Alkaline Phosphatase Creatine Kinase Creatine Kinase Index CK-MB (CK-2) Total Protein Albumin Blood Type Antibody Screen Crossmatch ASSESSMENT/PLAN: Acute Respiratory Failure S/P fall with head laceration S/P witnessed seizure DM Hypothyroid HTN Microcytic anemia Hx breast and ovarian CA Normal transfusion thresholds: Hgb: 7 May need GI evaluation if recurrent anemia O2 as needed VTE prophylaxis Follow blood sugars PO as tolerated Follow Neuro exam Floor Dr Carrion
--- NOTE | 2018-11-26 15:00 | PN ---
Physical Exam: SUBJECTIVE: Patient seen and examined HD# 2 ICU Day # 2 Overnight Events: No acute events reported overnight. Pt states she feels a little dizzy but otherwise denies complaints. Denies chest pain, shortness of breath, or difficulty swallowing. No further seizure like activity reported. OBJECTIVE: Vital Signs Period Temp Pulse Resp BP Sys/Mojica Pulse Ox Last 24 Hr 97.6 F-99.9 F 78-111 16-24 85-169/38-86 100-100 Lines: - PIV Drains: - None Supplemental Oxygen: 2 LPM via nasal cannula Physical Exams: GENERAL: The patient is a/o x4. HEAD: Sutured laceration to left forehead with ecchymosis over middle of forehead. LUNGS: Breathing not labored. Breath sounds equal, clear to auscultation bilaterally, no wheezes, no crackles, no accessory muscle use. HEART: Regular rate and rhythm, S1, S2 without murmur, rub or gallop. ABDOMEN: Soft and nondistended. EXTREMITIES: 2+ pulses, warm, well-perfused, no edema. PSYCH: Normal mood, normal affect. SKIN: Warm and dry Drips: LR @ 75 mL/hr Anti Infectives: - None Laboratory Results - last 24 hr 11/24/18 11/25/18 11/25/18 17:18 16:25 20:30 WBC RBC Hgb Hct MCV MCH MCHC RDW Plt Count MPV Absolute Neuts (auto) Neutrophils % Lymphocytes % Monocytes % Eosinophils % Basophils % Nucleated RBC % Sodium 131 L Potassium 3.8 Chloride 98 Carbon Dioxide 26 Anion Gap 8 BUN 8 Creatinine 0.9 Creat Clearance w eGFR 60.56 POC Glucometer 112 Random Glucose 347 H* Hemoglobin A1c % Calcium 7.5 L Phosphorus Magnesium Total Bilirubin AST ALT Alkaline Phosphatase Creatine Kinase Creatine Kinase Index CK-MB (CK-2) Total Protein Albumin Blood Type O POSITIVE Antibody Screen Negative Crossmatch See Detail 11/26/18 11/26/18 11/26/18 05:30 05:30 05:30 WBC 8.7 RBC 2.83 L Hgb 6.6 L* Hct 20.0 L D MCV 70.7 L MCH 23.3 L MCHC 33.0 RDW 15.5 Plt Count 186 MPV 7.4 L Absolute Neuts (auto) 6.4 Neutrophils % 73.5 Lymphocytes % 14.0 Monocytes % 8.6 Eosinophils % 2.9 Basophils % 1.0 Nucleated RBC % 0 Sodium 138 Potassium 3.4 L Chloride 103 Carbon Dioxide 26 Anion Gap 9 BUN 11 Creatinine 0.6 Creat Clearance w eGFR 96.69 POC Glucometer Random Glucose 64 L Hemoglobin A1c % 7.1 H Calcium 7.6 L Phosphorus 2.6 Magnesium 1.9 Total Bilirubin 0.4 AST 17 ALT 15 Alkaline Phosphatase 36 L Creatine Kinase Creatine Kinase Index CK-MB (CK-2) Total Protein 5.1 L Albumin 2.7 L Blood Type Antibody Screen Crossmatch 11/26/18 11/26/18 11/26/18 05:30 06:11 08:30 WBC 8.5 RBC 2.97 L Hgb 6.9 L* Hct 21.1 L MCV 71.0 L MCH 23.1 L MCHC 32.5 RDW 15.5 Plt Count 194 MPV 7.0 L Absolute Neuts (auto) 6.3 Neutrophils % 74.1 Lymphocytes % 14.2 Monocytes % 7.8 Eosinophils % 3.2 Basophils % 0.7 Nucleated RBC % 0 Sodium Potassium Chloride Carbon Dioxide Anion Gap BUN Creatinine Creat Clearance w eGFR POC Glucometer 66 Random Glucose Hemoglobin A1c % Calcium Phosphorus Magnesium Total Bilirubin AST ALT Alkaline Phosphatase Creatine Kinase 295 H Creatine Kinase Index 0.7 CK-MB (CK-2) 2.2 Total Protein Albumin Blood Type Antibody Screen Crossmatch 11/26/18 11:38 WBC RBC Hgb Hct MCV MCH MCHC RDW Plt Count MPV Absolute Neuts (auto) Neutrophils % Lymphocytes % Monocytes % Eosinophils % Basophils % Nucleated RBC % Sodium Potassium Chloride Carbon Dioxide Anion Gap BUN Creatinine Creat Clearance w eGFR POC Glucometer 207 Random Glucose Hemoglobin A1c % Calcium Phosphorus Magnesium Total Bilirubin AST ALT Alkaline Phosphatase Creatine Kinase Creatine Kinase Index CK-MB (CK-2) Total Protein Albumin Blood Type Antibody Screen Crossmatch Active Medications Generic Name Dose Route Start Last Admin Trade Name Freq PRN Reason Stop Dose Admin Acetaminophen 650 mg 11/25/18 22:40 11/25/18 23:26 Tylenol - PO 650 mg Q4H PRN Administration PAIN LEVEL 1-5 Amlodipine Besylate 2.5 mg 11/25/18 13:45 11/26/18 09:24 Norvasc - PO 2.5 mg DAILY [facility] Administration Aspirin 81 mg 11/26/18 10:00 11/26/18 09:24 Ecotrin - PO 81 mg DAILY [facility] Administration Carvedilol 25 mg 11/25/18 22:00 11/26/18 09:25 Coreg - PO 25 mg BID [facility] Administration Chlorhexidine Gluconate 1 applic 11/24/18 22:00 11/25/18 22:50 Hibiclens For Decolonization - TP 1 applic HS [facility] Administration Cholecalciferol 1,000 unit 11/26/18 10:00 11/26/18 09:24 Vitamin D3 - PO 1,000 unit DAILY [facility] Administration Lactated Ringer's 1,000 ml in 1,000 mls @ 75 mls/hr 11/24/18 21:51 11/25/18 23:02 Lactated Ringers Solution IV 75 mls/hr ASDIR [facility] Administration Insulin Aspart 1 vial 11/26/18 07:00 11/26/18 11:49 Novolog Vial Sliding Scale - SQ 4 units ACHS [facility] Administration Protocol Levothyroxine Sodium 25 mcg 11/26/18 07:00 11/26/18 06:15 Synthroid - PO 25 mcg AM [facility] Administration Losartan Potassium 25 mg 11/26/18 07:00 11/26/18 06:15 Cozaar - PO 25 mg AM [facility] Administration Mupirocin 1 applic 11/24/18 22:00 11/26/18 10:00 Bactroban Ointment (For Decolonization) - NS 11/29/18 21:59 1 applic BID [facility] Administration Pantoprazole Sodium 20 mg 11/25/18 10:00 11/26/18 09:24 Protonix Iv IVPUSH 20 mg DAILY [facility] Administration ASSESSMENT/PLAN: 78 year old female who presents after fall with head laceration, witnessed seizure in ER with hyponatremia. Neuro (& Psych): - Consult Dr. Nava - A/o x4 without sedating gtts. - Seizures. Possibly secondary to metabolic derangement. Repeat head CT unremarkable for acute injury. Low suspicion for intracranial hemorrhage as cause. No further seizure like activity witnessed in the department. Endocrine: - T2DM, A1C 7.9. Continue insulin sliding scale. - Hypothyroidism. TSH within normal limits. Continue levothyroxine. - Hypocalcemia corrects to normal. Cardiovascular: - HTN. Continue home Amlodipine, Carvedilol, and Losartan. - HLD. Not on statin therapy. Pulm / Resp: - Extubated. Stable on 2 LPM of oxygen. Hematologic: - Microcytic anemia. Iron studies pending. Initial morning labs revealed significantly lower H/H. Repeated given no reported bleeding or stool change. Repeat H/H resulted again under 7.0 Ordered single unit for transfusion. Will repeat H/H after first unit to determine if second unit is required. - Ordered SFOB. If positive, will consult GI. However, suspect bleeding is likely secondary to acute blood loss from facial injury combined with iatrogenic anemia from blood draws. - CK trended downward from yesterday. Suspect acute rise was secondary to seizure like activity on top of musculoskeletal injury. Low suspicion for acute rhabdomyolysis. Musculoskeletal - Laceration to forehead s/p closure with sutures - Repeat right wrist films of better quality. No obvious fracture appreciated. Wrist wrapped by night team for pain. FEN: - IVF: LR. - Diet advanced to soft low sodium diet. Prophylaxis: - DVT: SCDs - GI: Protonix Dispo: Pt stable for care to be de-escalated to the med/surg floor for further monitoring. Kvng Cortes MD, PGY1 ICU Consult Service Visit type - Emergency Visit Emergency Visit: No - New Patient This patient is new to me today: No - Critical Care Critical Care patient: Yes Total Critical Care Time (in minutes): 37 Critical Care Statement: The care of this patient involved high complexity decision making to prevent further life threatening deterioration of the patient 's condition and/or to evaluate & treat vital organ system(s) failure or risk of failure.
[2018-11-26] MEDS ORDERED: LACTATED RINGERS SOLUTION 1,000 ML/1,000 ML INFUS.BAG IV SCH (16:21)
[2018-11-26] MEDS ORDERED: ACETAMINOPHEN 325 MG TABLET (FP) PO PRN (16:21)
--- NOTE | 2018-11-26 16:24 | PN ---
Physical Exam: SUBJECTIVE: Patient seen and examined. She is feeling better today. OBJECTIVE: Vital Signs Period Temp Pulse Resp BP Sys/Mojica Pulse Ox Last 24 Hr 97.6 F-99.9 F 78-111 16-24 85-145/38-86 100-100 GENERAL: The patient is awake, alert, and fully oriented, in no acute distress. HEAD: Normal with no signs of trauma. EYES: PERRL, extraocular movements intact, sclera anicteric, conjunctiva clear. No ptosis. ENT: Ears normal, nares patent, oropharynx clear without exudates, moist mucous membranes. NECK: Trachea midline, full range of motion, supple. LUNGS: Breath sounds equal, clear to auscultation bilaterally, no wheezes, no crackles, no accessory muscle use. HEART: Regular rate and rhythm, S1, S2 without murmur, rub or gallop. ABDOMEN: Soft, nontender, nondistended, normoactive bowel sounds, no guarding, no rebound, no hepatosplenomegaly, no masses. EXTREMITIES: 2+ pulses, warm, well-perfused, no edema. NEUROLOGICAL: Cranial nerves II through XII grossly intact. Normal speech, gait not observed. PSYCH: Normal mood, normal affect. SKIN: Warm, dry, normal turgor, no rashes or lesions noted Laboratory Results - last 24 hr 11/24/18 11/25/18 11/25/18 17:18 16:25 20:30 WBC RBC Hgb Hct MCV MCH MCHC RDW Plt Count MPV Absolute Neuts (auto) Neutrophils % Lymphocytes % Monocytes % Eosinophils % Basophils % Nucleated RBC % Sodium 131 L Potassium 3.8 Chloride 98 Carbon Dioxide 26 Anion Gap 8 BUN 8 Creatinine 0.9 Creat Clearance w eGFR 60.56 POC Glucometer 112 Random Glucose 347 H* Hemoglobin A1c % Calcium 7.5 L Phosphorus Magnesium Total Bilirubin AST ALT Alkaline Phosphatase Creatine Kinase Creatine Kinase Index CK-MB (CK-2) Total Protein Albumin Blood Type O POSITIVE Antibody Screen Negative Crossmatch See Detail 11/26/18 11/26/18 11/26/18 05:30 05:30 05:30 WBC 8.7 RBC 2.83 L Hgb 6.6 L* Hct 20.0 L D MCV 70.7 L MCH 23.3 L MCHC 33.0 RDW 15.5 Plt Count 186 MPV 7.4 L Absolute Neuts (auto) 6.4 Neutrophils % 73.5 Lymphocytes % 14.0 Monocytes % 8.6 Eosinophils % 2.9 Basophils % 1.0 Nucleated RBC % 0 Sodium 138 Potassium 3.4 L Chloride 103 Carbon Dioxide 26 Anion Gap 9 BUN 11 Creatinine 0.6 Creat Clearance w eGFR 96.69 POC Glucometer Random Glucose 64 L Hemoglobin A1c % 7.1 H Calcium 7.6 L Phosphorus 2.6 Magnesium 1.9 Total Bilirubin 0.4 AST 17 ALT 15 Alkaline Phosphatase 36 L Creatine Kinase Creatine Kinase Index CK-MB (CK-2) Total Protein 5.1 L Albumin 2.7 L Blood Type Antibody Screen Crossmatch 11/26/18 11/26/18 11/26/18 05:30 06:11 08:30 WBC 8.5 RBC 2.97 L Hgb 6.9 L* Hct 21.1 L MCV 71.0 L MCH 23.1 L MCHC 32.5 RDW 15.5 Plt Count 194 MPV 7.0 L Absolute Neuts (auto) 6.3 Neutrophils % 74.1 Lymphocytes % 14.2 Monocytes % 7.8 Eosinophils % 3.2 Basophils % 0.7 Nucleated RBC % 0 Sodium Potassium Chloride Carbon Dioxide Anion Gap BUN Creatinine Creat Clearance w eGFR POC Glucometer 66 Random Glucose Hemoglobin A1c % Calcium Phosphorus Magnesium Total Bilirubin AST ALT Alkaline Phosphatase Creatine Kinase 295 H Creatine Kinase Index 0.7 CK-MB (CK-2) 2.2 Total Protein Albumin Blood Type Antibody Screen Crossmatch 11/26/18 11/26/18 11:38 16:10 WBC RBC Hgb Hct MCV MCH MCHC RDW Plt Count MPV Absolute Neuts (auto) Neutrophils % Lymphocytes % Monocytes % Eosinophils % Basophils % Nucleated RBC % Sodium Potassium Chloride Carbon Dioxide Anion Gap BUN Creatinine Creat Clearance w eGFR POC Glucometer 207 255 Random Glucose Hemoglobin A1c % Calcium Phosphorus Magnesium Total Bilirubin AST ALT Alkaline Phosphatase Creatine Kinase Creatine Kinase Index CK-MB (CK-2) Total Protein Albumin Blood Type Antibody Screen Crossmatch Active Medications Generic Name Dose Route Start Last Admin Trade Name Freq PRN Reason Stop Dose Admin Acetaminophen 650 mg 11/25/18 22:40 11/25/18 23:26 Tylenol - PO 650 mg Q4H PRN Administration PAIN LEVEL 1-5 Amlodipine Besylate 2.5 mg 11/25/18 13:45 11/26/18 09:24 Norvasc - PO 2.5 mg DAILY [facility] Administration Aspirin 81 mg 11/26/18 10:00 11/26/18 09:24 Ecotrin - PO 81 mg DAILY [facility] Administration Carvedilol 25 mg 11/25/18 22:00 11/26/18 09:25 Coreg - PO 25 mg BID [facility] Administration Chlorhexidine Gluconate 1 applic 11/24/18 22:00 11/25/18 22:50 Hibiclens For Decolonization - TP 1 applic HS [facility] Administration Cholecalciferol 1,000 unit 11/26/18 10:00 11/26/18 09:24 Vitamin D3 - PO 1,000 unit DAILY [facility] Administration Lactated Ringer's 1,000 ml in 1,000 mls @ 75 mls/hr 11/24/18 21:51 11/25/18 23:02 Lactated Ringers Solution IV 75 mls/hr ASDIR [facility] Administration Insulin Aspart 1 vial 11/26/18 07:00 11/26/18 11:49 Novolog Vial Sliding Scale - SQ 4 units ACHS [facility] Administration Protocol Levothyroxine Sodium 25 mcg 11/26/18 07:00 11/26/18 06:15 Synthroid - PO 25 mcg AM [facility] Administration Losartan Potassium 25 mg 11/26/18 07:00 11/26/18 06:15 Cozaar - PO 25 mg AM [facility] Administration Mupirocin 1 applic 11/24/18 22:00 11/26/18 10:00 Bactroban Ointment (For Decolonization) - NS 11/29/18 21:59 1 applic BID [facility] Administration Pantoprazole Sodium 20 mg 11/25/18 10:00 11/26/18 09:24 Protonix Iv IVPUSH 20 mg DAILY [facility] Administration ASSESSMENT/PLAN: 78 y/o F with PMH HTN, HLD, DM, hypothyroid, history of rib fractures, 2019 s/p fall, who presents to the ED s/p mechanical fall and s/p seizures, intubated and accepted to ICU. S/p mechanical fall and seizure episode: -extubated yesterday -s/p ativan 2mg IVP x 2 in ED for two episodes, -Neurology consulted, will f/u recommendation, repeat CT head no acute changes, no Keppra recommended by neuro -f/u eeg -elevate HOB. prevent aspiration. sz precautions -head laceration, sutured, no fractures on xray Anemia: -Hgb dropped to 6.9, repeated 6.2, transfused blood, will monitor -likely caused by blood loss due to injury -f/u iron studies, FOBT, b12, folate Hyponatremia -normalized Hypothyroidism: -cont home meds -TSH nl HTN -initially uncontrolled, now stable -cont home meds DM -ISS, BGM -f/u a1c s/p breast and ovarian Ca F/E/N IV LR 75 cc/hr continue to follow lytes soft diet PPX no heparin for now, r/o bleed in light of low Hgb SCD's GI PPX: Protonix Dispo ICU Problem List - Problems (1) HTN (hypertension) Code(s): I10 - ESSENTIAL (PRIMARY) HYPERTENSION (2) Head trauma Code(s): S09.90XA - UNSPECIFIED INJURY OF HEAD, INITIAL ENCOUNTER Qualifiers: Encounter type: initial encounter Qualified Code(s): S09.90XA - Unspecified injury of head, initial encounter (3) Hypothyroid Code(s): E03.9 - HYPOTHYROIDISM, UNSPECIFIED (4) Seizure Code(s): R56.9 - UNSPECIFIED CONVULSIONS (5) Fracture of ribs, three, closed Code(s): S22.49XA - MULTIPLE FRACTURES OF RIBS, UNSP SIDE, INIT FOR CLOS FX Qualifiers: Encounter type: initial encounter Laterality: right Qualified Code(s): S22.41XA - Multiple fractures of ribs, right side, initial encounter for closed fracture Visit type - Emergency Visit Emergency Visit: Yes ED Registration Date: 11/24/18 Care time: The patient presented to the Emergency Department on the above date and was hospitalized for further evaluation of their emergent condition. - New Patient This patient is new to me today: No - Critical Care Critical Care patient: Yes Total Critical Care Time (in minutes): 40 Critical Care Statement: The care of this patient involved high complexity decision making to prevent further life threatening deterioration of the patient 's condition and/or to evaluate & treat vital organ system(s) failure or risk of failure. - Discharge Referral Referred to [facility] No
--- NOTE | 2018-11-26 16:34 | PN ---
Teaching Attending Note Name of Resident: Radha Card ATTENDING PHYSICIAN STATEMENT I saw and evaluated the patient. I reviewed the resident's note and discussed the case with the resident. I agree with the resident's findings and plan as documented. SUBJECTIVE:more alert and coherent OBJECTIVE: Vital Signs Temperature 98.1 F 11/26/18 16:00 Pulse Rate 80 11/26/18 16:00 Respiratory Rate 20 11/26/18 16:00 Blood Pressure 137/61 11/26/18 16:00 O2 Sat by Pulse Oximetry (%) 100 11/26/18 09:00 Elderly F comfortable able to call all events HEENT: Mm moist, + anemia, scalp laceration stitched NECK: No JVd No Bruit CHEST: CTA B/L CVS: S1S2 r ABD: No distention, non tender BS + EXT: No edema feet, BED CONTROL SPECIALIST: AOx3 non focal CBC, BMP 11/26/18 08:30 11/26/18 05:30 Active Medications Acetaminophen (Tylenol -) 650 mg PO Q4H PRN PRN Reason: PAIN LEVEL 1-5 Amlodipine Besylate (Norvasc -) 2.5 mg PO DAILY [facility] Aspirin (Ecotrin -) 81 mg PO DAILY [facility] Carvedilol (Coreg -) 25 mg PO BID [facility] Cholecalciferol (Vitamin D3 -) 1,000 unit PO DAILY [facility] Lactated Ringer's (Lactated Ringers Solution) 1,000 ml in 1,000 mls @ 75 mls/ hr IV ASDIR [facility] Insulin Aspart (Novolog Vial Sliding Scale -) 1 vial SQ ACHS [facility]; Protocol Levothyroxine Sodium (Synthroid -) 25 mcg PO AM [facility] Losartan Potassium (Cozaar -) 25 mg PO AM [facility] Pantoprazole Sodium (Protonix Iv) 20 mg IVPUSH DAILY [facility] ASSESSMENT AND PLAN:78 yrs old F with H/O anemia, HTN T2DM, Hypothyroidism , yesterday admitted after sustaining head traunma, a, patient was intubated for airway protection witnessed in the ED while getting CT head, extubated after few hours, today alert oriented able to recall all events clarly surrounding haed trauma nd fall, patient went to visit her in [place] trip nad fall hit her head with an Iron arthur with head traum and extensive bleediing 911 was called came to ED AOX3, today H/H drop to 6.2 and 6.9, no any sign of GI bleed or intrabdominal bleed. Problem List - Problems (1) Seizure Assessment/Plan: witnessed in the yesterday put on Keppra Neurolgy re evaluted after 2nd CT scan recommonded close observation F/U official EEG result. Loarzeplam 2 mg IVSS PRN. Code(s): R56.9 - UNSPECIFIED CONVULSIONS (2) Head trauma Assessment/Plan: Due to fall 2nd CT head shows no interval changes , scalp wound stitched looks clean and approximate Code(s): S09.90XA - UNSPECIFIED INJURY OF HEAD, INITIAL ENCOUNTER Qualifiers: Encounter type: initial encounter Qualified Code(s): S09.90XA - Unspecified injury of head, initial encounter (3) Hypothyroid Assessment/Plan: Cont Levothyroxione F/U TSH Code(s): E03.9 - HYPOTHYROIDISM, UNSPECIFIED (4) HTN (hypertension) Assessment/Plan: Well controlled on current meds Code(s): I10 - ESSENTIAL (PRIMARY) HYPERTENSION (5) Hypokalemia Assessment/Plan: Repleted F/U BMP Code(s): E87.6 - HYPOKALEMIA (6) Acute blood loss anemia Assessment/Plan: drop in H/H most likely from scalp bleeding, 1 unit PRBC F/U H/H stool occult blood , anemia w/u otherwise no obvious active source of bleeding.Sr Iron TIBC 12 Ferritin Reticount and LDH F/U stool occult blood no INCIDENT RESPONSE ANALYST bleeding or bleeding AK Code(s): D62 - ACUTE POSTHEMORRHAGIC ANEMIA
[2018-11-26 16:37] VITALS: BMI 19.9
[2018-11-26 17:26] LABS: BASO % 0.6 % (0-2.0); EOS % 3.8 % (0-4.5); HEMATOCRIT 29.9 % (32.4-45.2); HEMOGLOBIN 9.8 GM/dL (10.7-15.3); LYMPH % 13.4 % (8-40); MCH 24.9 pg (25.7-33.7); MCHC 32.9 g/dl (32.0-36.0); MEAN CELL VOLUME 75.5 fl (80-96); MEAN PLT VOLUME 7.7 fl (7.5-11.1); NEUT % 75.2 % (42.8-82.8); PLATELET COUNT 197 K/MM3 (134-434); RBC 3.95 M/mm3 (3.60-5.2); RDW 17.8 % (11.6-15.6); WHITE BLOOD COUNT 9.4 K/mm3 (4.0-10.0)
[2018-11-26] MEDS ORDERED: INSULIN (NOVOLOG) ASPART 100 UNITS/ML 10ML VIAL ONE ×2 (17:31→21:50)
[2018-11-27 04:10] LABS: SERUM IRON SATURATION 15 % (15-55); TOTAL IRON BINDING CAPACITY 287 ug/dL (250-450); UIBC 245 ug/dL (118-369)
[2018-11-27] MEDS: INSULIN SLIDING SCALE (NOVOLOG) 1 VIAL SQ SCH ×2 (06:43→12:27)
[2018-11-27] MEDS ORDERED: LEVOTHYROXINE NA 25 MCG TABLET (FP) PO SCH (07:00)
[2018-11-27 07:21] LABS: BASO % 1.5 % (0-2.0); EOS % 6.2 % (0-4.5); HEMATOCRIT 25.3 % (32.4-45.2); HEMOGLOBIN 8.4 GM/dL (10.7-15.3); LYMPH % 21.2 % (8-40); MCH 24.5 pg (25.7-33.7); MCHC 33.1 g/dl (32.0-36.0); MEAN CELL VOLUME 74.2 fl (80-96); MONO % 8.2 % (3.8-10.2); NEUT % 62.9 % (42.8-82.8); PLATELET COUNT 179 K/MM3 (134-434); RBC 3.41 M/mm3 (3.60-5.2); RDW 17.2 % (11.6-15.6); WHITE BLOOD COUNT 6.6 K/mm3 (4.0-10.0)
[2018-11-27 07:40] LABS: ANION GAP 7 MMOL/L (8-16); BLOOD UREA NITROGEN 12 mg/dL (7-18); CHLORIDE 106 mmol/L (98-107); CO2 27 mmol/L (21-32); CREATININE 0.7 mg/dL (0.55-1.3); GLUCOSE,RANDOM 166 mg/dL (74-106); POTASSIUM 3.6 mmol/L (3.5-5.1); SODIUM 140 mmol/L (136-145)
--- NOTE | 2018-11-27 09:15 | PN ---
Progress Note (short form) - Note Progress Note: Neurology CHIEF COMPLAINT: head injury, seizure HISTORY OF PRESENT ILLNESS: 78 y/o F with PMH HTN, HLD, DM, hypothyroid, hx 3 R sided rib fx 2018 s/p fall, hx breast and ovarian CA, who presents to the ED s/p mechanical fall on day of admission. All hx taken from chart and from ED providers, as pt intubated and sedated upon my examination. As per notes, the pt suffered a mechanical fall, tripping when visiting her in a NH. She subsequently suffered a 2cm laceration to her L forehead. Pt was brought to the ED for further evaluation. She did not have LOC, and was conversing with staff upon arrival. While in the ED, while her head laceration was being sutured, she had an event where she had R eye gaze deviation. Did not have tonic-clonic movements or post-ictal confusion. She later had another seizure of the same type when receiving a CTH lasting for 1 minute. During both episodes, pt was given ativan 2mg IVP (x2 total). She was intubated and sedated for "airway protection" as per ED staff. At one point, she attempted to disconnect herself from the vent, but desat to low 90's so it was reconnected. Admitted to ICU where she currently resides under critical care mgmt. Did not start AED at this time for one time event and in context of metabolic disturbances as described below. Events resolved on Ativan and with her on propofol. If event occurs again, then can start Keppra 500mg twice daily. Has woken up and now alert, responsive, verbal. CT head repeated and without acute changes. Downgraded from ICU 11/26 evening, doing well on the floor. Awake, alert, oriented, interactive, communicative. Active Medications Acetaminophen (Tylenol -) 650 mg PO Q4H PRN PRN Reason: PAIN LEVEL 1-5 Amlodipine Besylate (Norvasc -) 2.5 mg PO DAILY [facility] Aspirin (Ecotrin -) 81 mg PO DAILY [facility] Carvedilol (Coreg -) 25 mg PO BID [facility] Last Admin: 11/26/18 22:01 Dose: 25 mg Cholecalciferol (Vitamin D3 -) 1,000 unit PO DAILY [facility] Insulin Aspart (Novolog Vial Sliding Scale -) 1 vial SQ ACHS [facility]; Protocol Last Admin: 11/27/18 06:43 Dose: 2 units Levothyroxine Sodium (Synthroid -) 25 mcg PO DAILY@0700 [facility] Last Admin: 11/27/18 06:43 Dose: 25 mcg Losartan Potassium (Cozaar -) 25 mg PO DAILY [facility] PHYSICAL EXAMINATION Vital Signs Period Temp Pulse Resp BP Sys/Mojica Pulse Ox Last 24 Hr 97.9 F-98.9 F 80-88 16-22 121-137/46-69 100 GENERAL: Awake, alert, and fully oriented, in no acute distress. HEAD: + L forehead laceration. approx 2cm. without active bleed. +sutures EYES: Pupils equal, round and reactive to light EARS, NOSE, THROAT: Ears normal, nares patent, oropharynx clear without exudates. Moist mucous membranes. NECK: Normal range of motion, supple LUNGS: Breath sounds equal, clear to auscultation bilaterally. No wheezes, and no crackles. No accessory muscle use. HEART: Regular rate and rhythm, normal S1 and S2 without murmur, rub or gallop. ABDOMEN: Soft, nontender, not distended, normoactive bowel sounds, no guarding UPPER EXTREMITIES: +swollen R wrist. without bruising. LOWER EXTREMITIES: 2+ dp pulses, warm, well-perfused. No calf tenderness. No peripheral edema. NEUROLOGICAL: Awake, alert, moving all extremities equally, sensory intact, following commands CBCD WBC 6.6 K/mm3 (4.0-10.0) 11/27/18 06:10 RBC 3.41 M/mm3 (3.60-5.2) L 11/27/18 06:10 Hgb 8.4 GM/dL (10.7-15.3) L 11/27/18 06:10 Hct 25.3 % (32.4-45.2) L D 11/27/18 06:10 MCV 74.2 fl (80-96) L 11/27/18 06:10 MCHC 33.1 g/dl (32.0-36.0) 11/27/18 06:10 RDW 17.2 % (11.6-15.6) H 11/27/18 06:10 Plt Count 179 K/MM3 (134-434) 11/27/18 06:10 MPV 7.0 fl (7.5-11.1) L 11/27/18 06:10 CMP Sodium 140 mmol/L (136-145) 11/27/18 06:10 Potassium 3.6 mmol/L (3.5-5.1) 11/27/18 06:10 Chloride 106 mmol/L (98-107) 11/27/18 06:10 Carbon Dioxide 27 mmol/L (21-32) 11/27/18 06:10 Anion Gap 7 MMOL/L (8-16) L 11/27/18 06:10 BUN 12 mg/dL (7-18) 11/27/18 06:10 Creatinine 0.7 mg/dL (0.55-1.3) 11/27/18 06:10 Creat Clearance w eGFR 80.93 (>60) 11/27/18 06:10 Random Glucose 166 mg/dL (74-106) H 11/27/18 06:10 Calcium 8.0 mg/dL (8.5-10.1) L 11/27/18 06:10 Total Bilirubin 0.4 mg/dL (0.2-1) 11/26/18 05:30 AST 17 U/L (15-37) 11/26/18 05:30 ALT 15 U/L (13-61) 11/26/18 05:30 Alkaline Phosphatase 36 U/L (45-117) L 11/26/18 05:30 Total Protein 5.1 g/dl (6.4-8.2) L 11/26/18 05:30 Albumin 2.7 g/dl (3.4-5.0) L 11/26/18 05:30 CARDIAC ENZYMES Creatine Kinase 295 U/L (26-192) H 11/26/18 05:30 Troponin I < 0.02 ng/ml (0.00-0.05) 11/24/18 17:18 CTH: (-) for acute changes. ventriculomegaly, small vessel periventricular ischemic changes, thin corpus callosum, no fx or bleed. CXR: without acute changes. repeated EKG: RBBB, qtc 472ms R hand, wrist XR: result pending ASSESSMENT/PLAN: 78 y/o F with PMH HTN, HLD, DM, hypothyroid, hx 3 R sided rib fx 2019 s/p fall, hx breast and ovarian CA, who presents to the ED s/p mechanical fall on day of admission. All hx taken from chart and from ED providers, as pt intubated and sedated upon my examination. As per notes, the pt suffered a mechanical fall, tripping when visiting her in a NH. She subsequently suffered a 2cm laceration to her L forehead. Pt was brought to the ED for further evaluation. She did not have LOC, and was conversing with staff upon arrival. While in the ED, while her head laceration was being sutured, she had an event where she had R eye gaze deviation. Did not have tonic-clonic movements or post-ictal confusion. She later had another seizure of the same type when receiving a CTH lasting for 1 minute. During both episodes, pt was given ativan 2mg IVP (x2 total). She was intubated and sedated for "airway protection" as per ED staff. At one point, she attempted to disconnect herself from the vent, but desat to low 90's so it was reconnected. ROS unable to obtain d/t pt current sedated status. Admitted to ICU where she currently resides under critical care mgmt. Discussed with nurse and resident. Would not start AED at this time for one time event and in context of metabolic disturbances as described below. Events resolved on Ativan and with her on propofol. If event occurs again, then can start Keppra 500mg twice daily. Admitted to ICU where she currently resides under critical care mgmt. Did not start AED at this time for one time event and in context of metabolic disturbances as described below. Events resolved on Ativan and with her on propofol. If event occurs again, then can start Keppra 500mg twice daily. Has woken up and now alert, responsive, verbal. CT head repeated and without acute changes. Downgraded from ICU 11/26 evening, doing well on the floor. Awake, alert, oriented, interactive, communicative. Continue to monitor neurolgoic status. Correct underlying hyponatremia, hypoMag, hypoK, IV fluids as required. Monitor H/H, transfuse as needed. Treat metabolic derangements. Monitor bp, maintain normotensive range.
[2018-11-27] MEDS ORDERED: ASPIRIN COATED 81 MG TABLET.EC PO SCH (10:00)
[2018-11-27] MEDS ORDERED: LOSARTAN POTASSIUM 25 MG TABLET PO SCH (10:00)
[2018-11-27] MEDS ORDERED: PANTOPRAZOLE SODIUM 40 MG VIAL IVPUSH SCH (10:00)
[2018-11-27] MEDS ORDERED: CHOLECALCIFEROL (VITAMIN D3) 1,000 UNIT TABLET (FP) PO SCH (10:00)
[2018-11-27] MEDS ORDERED: amLODIPine BESYLATE 2.5 MG TABLET (FP) PO SCH (10:00)
[2018-11-27] MEDS ORDERED: INSULIN (NOVOLOG) ASPART 100 UNITS/ML 10ML VIAL ONE (10:44)
[2018-11-27] MEDS: CARVEDILOL 25 MG TABLET (FP) PO SCH (10:46)
[2018-11-27 12:39] LABS: HEMATOCRIT 27.5 % (32.4-45.2); HEMOGLOBIN 9.1 GM/dL (10.7-15.3); MCH 24.8 pg (25.7-33.7); MEAN CELL VOLUME 75.3 fl (80-96); MEAN PLT VOLUME 7.5 fl (7.5-11.1); PLATELET COUNT 204 K/MM3 (134-434); RBC 3.65 M/mm3 (3.60-5.2); RDW 17.7 % (11.6-15.6); WHITE BLOOD COUNT 7.4 K/mm3 (4.0-10.0)
[2018-11-27 13:53] VITALS: BP 141/57; PULSE 90; TEMP 98.3
--- NOTE | 2018-11-27 14:29 | PN ---
Progress Note, Physician History of Present Illness: PULMONARY ALERT,NO DISTRESS,-SOB. - Current Medication List Current Medications: Active Medications Acetaminophen (Tylenol -) 650 mg PO Q4H PRN PRN Reason: PAIN LEVEL 1-5 Amlodipine Besylate (Norvasc -) 2.5 mg PO DAILY [facility] Last Admin: 11/27/18 10:46 Dose: 2.5 mg Aspirin (Ecotrin -) 81 mg PO DAILY [facility] Last Admin: 11/27/18 10:46 Dose: 81 mg Carvedilol (Coreg -) 25 mg PO BID [facility] Last Admin: 11/27/18 10:46 Dose: 25 mg Cholecalciferol (Vitamin D3 -) 1,000 unit PO DAILY [facility] Last Admin: 11/27/18 10:46 Dose: 1,000 unit Insulin Aspart (Novolog Vial Sliding Scale -) 1 vial SQ ACHS [facility]; Protocol Last Admin: 11/27/18 12:27 Dose: 8 units Levothyroxine Sodium (Synthroid -) 25 mcg PO DAILY@0700 [facility] Last Admin: 11/27/18 06:43 Dose: 25 mcg Losartan Potassium (Cozaar -) 25 mg PO DAILY [facility] Last Admin: 11/27/18 10:46 Dose: 25 mg - Objective Vital Signs: Vital Signs Temperature 98.3 F 11/27/18 13:51 Pulse Rate 90 11/27/18 13:51 Respiratory Rate 20 11/27/18 13:51 Blood Pressure 141/57 L 11/27/18 13:51 O2 Sat by Pulse Oximetry (%) 100 11/27/18 10:00 Constitutional: Yes: Calm, Thin Eyes: Yes: WNL HENT: Yes: WNL Neck: Yes: WNL Cardiovascular: Yes: Regular Rate and Rhythm, S1, S2 Respiratory: Yes: CTA Bilaterally Gastrointestinal: Yes: Normal Bowel Sounds, Soft Extremities: Yes: WNL Edema: No Labs: CBC, BMP 11/27/18 12:00 11/27/18 06:10 INR, PTT INR 1.03 (0.83-1.09) 11/25/18 05:30 Problem List - Problems (1) HTN (hypertension) Code(s): I10 - ESSENTIAL (PRIMARY) HYPERTENSION (2) Head trauma Code(s): S09.90XA - UNSPECIFIED INJURY OF HEAD, INITIAL ENCOUNTER Qualifiers: Encounter type: initial encounter Qualified Code(s): S09.90XA - Unspecified injury of head, initial encounter (3) Hypothyroid Code(s): E03.9 - HYPOTHYROIDISM, UNSPECIFIED (4) Seizure Code(s): R56.9 - UNSPECIFIED CONVULSIONS Assessment/Plan ASSESSMENT/PLAN: S/P Acute Respiratory Failure resolved S/P fall with head laceration S/P witnessed seizure DM Hypothyroid HTN Microcytic anemia Hx breast and ovarian CA Normal transfusion thresholds: Hgb: 7 O2 as needed VTE prophylaxis Follow blood sugars PO as tolerated DR HARVEY
--- NOTE | 2018-11-27 15:17 | PN ---
Teaching Attending Note Name of Resident: Radha Card ATTENDING PHYSICIAN STATEMENT I saw and evaluated the patient. I reviewed the resident's note and discussed the case with the resident. I agree with the resident's findings and plan as documented with exceptions below. SUBJECTIVE: Patient seen and examined, no headache, abdominal or flank pain, urinary symptoms, dizziness or new concerns. Feels well. OBJECTIVE: Vital Signs Period Temp Pulse Resp BP Sys/Mojica Pulse Ox Last 24 Hr 98.1 F-98.9 F 80-90 18-20 129-144/57-69 100-100 Intake & Output 11/24/18 11/25/18 11/26/18 11/27/18 23:59 23:59 23:59 23:59 Intake Total 0 19820 250 Output Total 3150 Balance 0 -1167 2260 250 Weight 103 lb 4 oz 103 lb 4 oz 96 lb 14.4 oz 99 lb 6 oz General: lying in bed in no acute distress HEENT: left scalp wound with no active bleed, discharge, erythema or tenderness , nasal bridge bruise Chest: CTAB, no rales or wheezing Abdomen:Soft, NT, ND Extremities: no edema, or shaking noted Home Medications Medication Instructions Recorded Aspirin Coated [Ecotrin -] 81 mg PO DAILY 06/09/13 Cholecalciferol (Vitamin D3) 1,000 unit PO DAILY tablet 04/21/14 [Vitamin D -] Amlodipine Besylate 5 mg PO 1/2 tab daily 02/12/17 Insulin Detemir [Levemir Flextouch] 16 unit SQ HS 11/25/18 Iron 18 mg PO DAILY 11/25/18 Active Medications Acetaminophen (Tylenol -) 650 mg PO Q4H PRN PRN Reason: PAIN LEVEL 1-5 Amlodipine Besylate (Norvasc -) 2.5 mg PO DAILY [facility] Last Admin: 11/27/18 10:46 Dose: 2.5 mg Aspirin (Ecotrin -) 81 mg PO DAILY [facility] Last Admin: 11/27/18 10:46 Dose: 81 mg Carvedilol (Coreg -) 25 mg PO BID [facility] Last Admin: 11/27/18 10:46 Dose: 25 mg Cholecalciferol (Vitamin D3 -) 1,000 unit PO DAILY [facility] Last Admin: 11/27/18 10:46 Dose: 1,000 unit Insulin Aspart (Novolog Vial Sliding Scale -) 1 vial SQ ACHS [facility]; Protocol Last Admin: 11/27/18 12:27 Dose: 8 units Levothyroxine Sodium (Synthroid -) 25 mcg PO DAILY@0700 [facility] Last Admin: 11/27/18 06:43 Dose: 25 mcg Losartan Potassium (Cozaar -) 25 mg PO DAILY [facility] Last Admin: 11/27/18 10:46 Dose: 25 mg Laboratory Results - last 24 hr 11/25/18 11/26/18 11/26/18 05:30 16:00 16:10 WBC 9.4 RBC 3.95 Hgb 9.8 L Hct 29.9 L D MCV 75.5 L MCH 24.9 L MCHC 32.9 RDW 17.8 H Plt Count 197 MPV 7.7 Absolute Neuts (auto) 7.1 Neutrophils % 75.2 Lymphocytes % 13.4 Monocytes % 7.0 Eosinophils % 3.8 Basophils % 0.6 Nucleated RBC % 0 Retic Count Sodium Potassium Chloride Carbon Dioxide Anion Gap BUN Creatinine Creat Clearance w eGFR POC Glucometer 255 Random Glucose Calcium Iron 42 TIBC 287 Iron Saturation 15 Ferritin Vitamin B12 11/26/18 11/27/18 11/27/18 21:55 06:10 06:10 WBC 6.6 RBC 3.41 L Hgb 8.4 L Hct 25.3 L D MCV 74.2 L MCH 24.5 L MCHC 33.1 RDW 17.2 H Plt Count 179 MPV 7.0 L Absolute Neuts (auto) 4.1 Neutrophils % 62.9 Lymphocytes % 21.2 D Monocytes % 8.2 Eosinophils % 6.2 H Basophils % 1.5 Nucleated RBC % 0 Retic Count Sodium 140 Potassium 3.6 Chloride 106 Carbon Dioxide 27 Anion Gap 7 L BUN 12 Creatinine 0.7 Creat Clearance w eGFR 80.93 POC Glucometer 340 Random Glucose 166 H Calcium 8.0 L Iron TIBC Iron Saturation Ferritin Vitamin B12 11/27/18 11/27/18 11/27/18 06:10 06:10 06:10 WBC RBC Hgb Hct MCV MCH MCHC RDW Plt Count MPV Absolute Neuts (auto) Neutrophils % Lymphocytes % Monocytes % Eosinophils % Basophils % Nucleated RBC % Retic Count 1.61 H Sodium Potassium Chloride Carbon Dioxide Anion Gap BUN Creatinine Creat Clearance w eGFR POC Glucometer Random Glucose Calcium Iron TIBC Iron Saturation Ferritin 105.2 Vitamin B12 416 11/27/18 11/27/18 11/27/18 06:37 12:00 12:25 WBC 7.4 RBC 3.65 Hgb 9.1 L Hct 27.5 L MCV 75.3 L MCH 24.8 L MCHC 33.0 RDW 17.7 H Plt Count 204 MPV 7.5 Absolute Neuts (auto) Neutrophils % Lymphocytes % Monocytes % Eosinophils % Basophils % Nucleated RBC % Retic Count Sodium Potassium Chloride Carbon Dioxide Anion Gap BUN Creatinine Creat Clearance w eGFR POC Glucometer 158 329 Random Glucose Calcium Iron TIBC Iron Saturation Ferritin Vitamin B12 CT brain x [address] A/P results reviewed ASSESSMENT AND PLAN: 78 yof with PMHx of HTN, HLD, DM, hypothyroid, hx 3 R sided rib fx 2018 s/p fall , hx breast and ovarian CA, admitted with mechanical fall, seizure like movement and anemia -Mechanical fall -Scalp laceration -Seizure like movement -Acute blood loss anemia -HTN -HLD -IDDM -Right sided rib fx 2018 Plan: doing well, no further seizure like movements. Neurology input noted, no AEDs for now. Outpatient follow up for EEG h/h stable. CT A/P neg for acute concerns Appropriate response to [facility] Outpatient PCP follow up and GI referral Resume levemir/metformin, hold glipizide on d.c with outpatient BGM monitoring. PT eval noted. Patient wants to go home, declines any SNF. Niece to live with her for now D/c home with services. Plan discussed with patient and nursing in detail, all questions answered.
--- NOTE | 2018-11-27 18:12 | DS ---
Physical Exam: SUBJECTIVE: Patient seen and examined, feeling good today. OBJECTIVE: Vital Signs Period Temp Pulse Resp BP Sys/Mojica Pulse Ox Last 24 Hr 98.3 F-98.9 F 80-90 18-20 129-144/57-69 100-100 PHYSICAL EXAM GENERAL: The patient is awake, alert, and fully oriented, lying in bed comfortably. HEAD: 2 cm laceration with scab on it on left side of her forehead, no drainage , no tenderness to palpation. EYES: Extraocular movements intact, conjunctiva clear. ENT: Oropharynx clear without exudates, moist mucous membranes. NECK: Trachea midline, full range of motion, supple. LUNGS: Breath sounds equal, clear to auscultation bilaterally, no wheezes, no crackles, no accessory muscle use. HEART: Regular rate and rhythm, S1, S2 without murmur, rub or gallop. ABDOMEN: Soft, nontender, nondistended, +BS, no guarding, no rebound. NEUROLOGICAL: Normal speech, gait not observed. PSYCH: Normal mood, normal affect. SKIN: Warm, dry, normal turgor, no rashes EXTREMITIES: swlling on right hand. LABS Laboratory Results - last 24 hr 11/25/18 11/26/18 11/27/18 05:30 21:55 06:10 WBC 6.6 RBC 3.41 L Hgb 8.4 L Hct 25.3 L D MCV 74.2 L MCH 24.5 L MCHC 33.1 RDW 17.2 H Plt Count 179 MPV 7.0 L Absolute Neuts (auto) 4.1 Neutrophils % 62.9 Lymphocytes % 21.2 D Monocytes % 8.2 Eosinophils % 6.2 H Basophils % 1.5 Nucleated RBC % 0 Retic Count Sodium Potassium Chloride Carbon Dioxide Anion Gap BUN Creatinine Creat Clearance w eGFR POC Glucometer 340 Random Glucose Calcium Iron 42 TIBC 287 Iron Saturation 15 Ferritin Vitamin B12 11/27/18 11/27/18 11/27/18 06:10 06:10 06:10 WBC RBC Hgb Hct MCV MCH MCHC RDW Plt Count MPV Absolute Neuts (auto) Neutrophils % Lymphocytes % Monocytes % Eosinophils % Basophils % Nucleated RBC % Retic Count 1.61 H Sodium 140 Potassium 3.6 Chloride 106 Carbon Dioxide 27 Anion Gap 7 L BUN 12 Creatinine 0.7 Creat Clearance w eGFR 80.93 POC Glucometer Random Glucose 166 H Calcium 8.0 L Iron TIBC Iron Saturation Ferritin 105.2 Vitamin B12 11/27/18 11/27/18 11/27/18 06:10 06:37 12:00 WBC 7.4 RBC 3.65 Hgb 9.1 L Hct 27.5 L MCV 75.3 L MCH 24.8 L MCHC 33.0 RDW 17.7 H Plt Count 204 MPV 7.5 Absolute Neuts (auto) Neutrophils % Lymphocytes % Monocytes % Eosinophils % Basophils % Nucleated RBC % Retic Count Sodium Potassium Chloride Carbon Dioxide Anion Gap BUN Creatinine Creat Clearance w eGFR POC Glucometer 158 Random Glucose Calcium Iron TIBC Iron Saturation Ferritin Vitamin B12 416 11/27/18 12:25 WBC RBC Hgb Hct MCV MCH MCHC RDW Plt Count MPV Absolute Neuts (auto) Neutrophils % Lymphocytes % Monocytes % Eosinophils % Basophils % Nucleated RBC % Retic Count Sodium Potassium Chloride Carbon Dioxide Anion Gap BUN Creatinine Creat Clearance w eGFR POC Glucometer 329 Random Glucose Calcium Iron TIBC Iron Saturation Ferritin Vitamin B12 HOSPITAL COURSE: 78 y/o F with PMH HTN, HLD, DM, hypothyroid, hx 3 R sided rib fx 2019 s/p fall, hx breast and ovarian CA, who presents to the ED s/p mechanical fall. The pt suffered a mechanical fall, tripping when visiting her in a NH. She subsequently suffered a 2cm laceration to her L forehead. Pt was brought to the ED for further evaluation. She did not have LOC, and was conversing with staff upon arrival. While in the ED, while her head laceration was being sutured, she had a two- minute seizure where she had R eye gaze deviation. Did not have tonic-clonic movements or post-ictal confusion. She later had another seizure of the same type when receiving a CTH lasting for 1 minute. During both seizure episodes, pt was given ativan 2mg IVP (x2 total). She was intubated and sedated. The patient was admitted to ICU for further monitoring. She had CT head done x 2 that didn't visualize acute pathology. Neurology was consulted. No medications for seizures were started. The patient clinically improved and was extubated. She was also found to have low Hgb that improved. The patient was transferred to med surg. We also monitored her blood pressure and diabetes. She was evaluated by physical therapy and was discharged home. Date of Admission:11/24/18 Date of Discharge: 11/27/18 Minutes to complete discharge: 35 Discharge Summary Reason For Visit: TRAUMATIC INJURY OF HEAD/SEIZURE Current Active Problems Acute blood loss anemia (Acute) HTN (hypertension) (Acute) Head trauma (Acute) Hypokalemia (Acute) Hypothyroid (Acute) Seizure (Acute) Condition: Stable - Instructions Diet, Activity, Other Instructions: You were admitted with fall and suspicion for a seizure. You had a scalp laceration. You were seen by neurologist and no additional medications or treatment have been recommended currently. You were also noted with low blood counts (CBC) that improved with transfusion. You will need your blood counts monitored outpatient and discuss [facility] follow up for the same. MEDICATIONS: Continue all your home medications (including insulin and metformin) except glipizide for now. Advise to check your blood sugars before meals and at bedtime and maintain a diary, if you notice you blood sugars are persistently >140, you will need to be resumed on your glipizide, please discuss with your doctor in this regard. INSTRUCTIONS No driving, operating heavy machinery or being alone with children or on heights. Advise supervision with activities. FOLLOW UP: With Dr. Bravo in 3-5 days ( will need scalp wound check and sutures removal in 5 days) Your EEG results are currently pending, please follow up with neurologist Dr. Nava in 1 week for results and further treatment. Gastroenterology follow up to monitor and do further needed tests for you anemia (Low blood counts) Blood work CBC (Complete Blood Count) in 1 week with your doctor. If you notice any fevers, chills, seizures, loss of consciousness, dark or bloody stools or any new concerns, please call 911 or come to the ED. Referrals: Codey Bravo MD [Primary Care Provider] - Desmond Nava MD [Staff Physician] - 1 Week Disposition: VNS/HOME HEALTH CARE - Home Medications Comprehensive Discharge Medication List: Ambulatory Orders Aspirin Coated [Ecotrin -] 81 mg PO DAILY 06/09/13 Cholecalciferol (Vitamin D3) [Vitamin D -] 1,000 unit PO DAILY tablet 04/21/14 Amlodipine Besylate 5 mg PO 1/2 tab daily 02/12/17 Insulin Detemir [Levemir Flextouch] 16 unit SQ HS 11/25/18 Iron 18 mg PO DAILY 11/25/18 Problem List - Problems (1) HTN (hypertension) Code(s): I10 - ESSENTIAL (PRIMARY) HYPERTENSION (2) Head trauma Code(s): S09.90XA - UNSPECIFIED INJURY OF HEAD, INITIAL ENCOUNTER Qualifiers: Encounter type: initial encounter Qualified Code(s): S09.90XA - Unspecified injury of head, initial encounter (3) Hypothyroid Code(s): E03.9 - HYPOTHYROIDISM, UNSPECIFIED (4) Seizure Code(s): R56.9 - UNSPECIFIED CONVULSIONS (5) Fracture of ribs, three, closed Code(s): S22.49XA - MULTIPLE FRACTURES OF RIBS, UNSP SIDE, INIT FOR CLOS FX Qualifiers: Encounter type: initial encounter Laterality: right Qualified Code(s): S22.41XA - Multiple fractures of ribs, right side, initial encounter for closed fracture This patient is new to me today: No Emergency Visit: Yes ED Registration Date: 11/24/18 Care time: The patient presented to the Emergency Department on the above date and was hospitalized for further evaluation of their emergent condition. Critical Care patient: No - Discharge Referral Referred to [facility] No
[2018-11-28 04:14] LABS: SERUM IRON SATURATION 14 % (15-55); TOTAL IRON BINDING CAPACITY 269 ug/dL (250-450); UIBC 230 ug/dL (118-369)
== END 2018-11-27 16:40 | disposition home health service (06) | DRG 100 ==
LOC: JER 16:56 → JERBED 19:15 → JICU 21:07 → J6S 11-26 15:41
PROVIDERS: ADMIT Internal Medicine; ATTEND Hospitalist
PROC: 5A1935Z Respiratory Ventilation, Less than 24 Consecutive Hours (ICD-10-PCS; principal; 2018-11-24)
PROC: 0CHY7BZ Insertion of Airway into Mouth and Throat, Via Natural or Artificial Opening (ICD-10-PCS; 2018-11-24)
DX: R56.9 Unspecified convulsions (principal); J96.00 Acute respiratory failure, unspecified whether with hypoxia or hypercapnia; E87.1 Hypo-osmolality and hyponatremia; D62 Acute posthemorrhagic anemia; S01.01XA Laceration without foreign body of scalp, initial encounter; W18.39XA Other fall on same level, initial encounter; E03.9 Hypothyroidism, unspecified; E87.6 Hypokalemia; E78.5 Hyperlipidemia, unspecified; I10 Essential (primary) hypertension; S09.90XA Unspecified injury of head, initial encounter; D64.9 Anemia, unspecified; E83.51 Hypocalcemia; E11.65 Type 2 diabetes mellitus with hyperglycemia; E83.42 Hypomagnesemia; S00.83XA Contusion of other part of head, initial encounter; Z85.43 Personal history of malignant neoplasm of ovary; W01.0XXA Fall on same level from slipping, tripping and stumbling without subsequent striking against object, initial encounter; Y92.098 Other place in other non-institutional residence as the place of occurrence of the external cause; Z85.3 Personal history of malignant neoplasm of breast
CPT/HCPCS: 36415; 36430; 70450-TC; 71045-TC-FY; 72125-TC; 73110-TC-RT-FY; 73130-TC-RT-FY; 74176-TC; 80048; 80053; 80061; 81003; 82436; 82533; 82550; 82553; 82565; 82607; 82728; 82746; 82962; 83036; 83540; 83550; 83721; 83735; 83930; 83935; 84100; 84133; 84300; 84443; 84484; 85025; 85027; 85044; 85610; 86850; 86900; 86901; 86922; 90715; 93005; 93010; 94002; 95816; 97116-GP; 97161-GP; 99285-25; J7030; P9038; P9058